=== PATIENT | female | born 1940 | race Caucasian/White ===

== ENCOUNTER 2016-08-11 14:42 | Inpatient (IN) | payer MEDICARE, OTHER ==
[2016-08-11] MEDS: Potassium Chloride 25 MEQ Powder Packet PO SCH ×2 (16:42→20:24)
[2016-08-11] MEDS: Sodium Chloride 0.9% with KCl 1,000 ML IV SCH (16:45)
[2016-08-11] MEDS ORDERED: Aspirin 81 MG Tab.Chew PO ONE (17:12)
[2016-08-11] MEDS ORDERED: Aspirin 81 MG Tab.EC PO SCH (17:15)
[2016-08-11] MEDS ORDERED: Clopidogrel 75 MG Tab PO ONE (17:15)
[2016-08-11] MEDS: Pantoprazole 40 MG Vial IVPUSH SCH (18:00)
[2016-08-11] MEDS: Metoprolol Succinate 25 MG Tab.ER PO SCH (18:00)
[2016-08-11] MEDS: Fluticasone/Salmeterol 250-50 MCG Inhalation Powder 14/Diskus INH SCH (20:24)
[2016-08-11] MEDS: Magnesium Oxide 500 MG Tab PO SCH (20:24)
[2016-08-11] MEDS: atorvaSTATin 10 MG Tab PO SCH (20:24)
[2016-08-11] MEDS ORDERED: Omeprazole 20 MG Cap.CR PO SCH (21:00)
[2016-08-12] MEDS: Sodium Chloride 0.9% with KCl 1,000 ML IV SCH (08:15)
[2016-08-12] MEDS ORDERED: Potassium Chloride 20 MEQ in Premix Bag 1 BAG IV ONE ×2 (08:47→11:00)
[2016-08-12] MEDS ORDERED: Metoprolol Tartrate 50 MG Tab PO SCH (09:00)
[2016-08-12] MEDS: Fluticasone/Salmeterol 250-50 MCG Inhalation Powder 14/Diskus INH SCH ×2 (09:25→20:43)
--- NOTE | 2016-08-12 09:28 | PCM.PN ---
- General Info Date of Service: 08/12/16 Admission Dx/Problem (Free Text): Chief complaint: Weakness/low potassium History of present illness Patient is a 75-year-old white female with a significant history-COPD, hypertension, hypokalemia, hypomagnesemia-patient presented to the clinic apparently to see the Oncologist-however upon routine lab draw she was noticed to have a potassium level of 2.2 and appeared quite weak and with self-care neglect. They have been compliant with her medications including her regular potassium. Alcohol-some wine at night for supper. Very disheveled in the office however denied any shortness of breath or chest pain. Patient presented for oncology due to progressive neutropenia Patient admitted for further evaluation and treatment-especially hypokalemia Past medical history: COPD Depression Hypertension Hyperlipidemia GERD Alcohol dependency Tobacco abuse disorder Hypomagnesemia Osteoporosis Atrial Flutter with RVR GI bleed Chronic diarrhea Present Working diagnosis: Hypokalemia-profound Weakness Self care deficit for bathing and hygiene COPD History of atrial fibrillation Essential hypertension Hyperlipidemia Age related osteoporosis Rule out myocardial infarction Patient reports today: Feels a little bit better today Denies any chest pain or shortness breath at present-O2 on Does have home oxygen at home for reports it is not for her COPD is for some other reason she can't remember Significant memory loss appreciated-patient thinks it was 1998 the [facility] Nurses report today: Tough, sad situation patient came in very unkempt/disheveled Nurses report that she usually goes to the penitentiary after her acute care admission and then gets in fairly good condition and then goes back home again and does not or is not able to take care of herself adequately and cleanse herself adequately Significant memory loss History of significant tobacco abuse disorder-remains active History of significant alcohol abuse disorder-remains active Diffuse skin rash on her bottom with ulcerations Very limited social situation Asymptomatic with elevated heart rate-heart rate increases to 160s-170s at times Functional Status: Reports: pain controlled, tolerating diet, ambulating (With assistance ) - Review of Systems General: Reports: Weakness, Fatigue, Malaise. Denies: Fever, Chills HEENT: Reports: no symptoms Pulmonary: Reports: no symptoms. Denies: shortness of breath (No shortness breath at present but has her oxygen on), cough, wheezing Cardiovascular: Reports: No Symptoms. Denies: Chest Pain, Palpitations, Edema, Lightheadedness Gastrointestinal: Reports: No symptoms Genitourinary: Reports: no symptoms Musculoskeletal: Reports: no symptoms Skin: Reports: no symptoms Neurological: Reports: No Symptoms, Weakness, Other (Obvious recent memory loss problems) Psychiatric: Reports: no symptoms, other (History of depression anxiety- pleasant at present) - Patient Data Vitals - most recent: Last Vital Signs Temp 96.8 F 08/12/16 06:26 Pulse 85 08/12/16 06:26 Resp 20 08/12/16 06:26 BP 97/54 L 08/12/16 06:26 Pulse Ox 96 08/12/16 06:26 Weight - most recent: 105 lb 4.8 oz I&O - last 24 hours: Intake & Output 08/11/16 08/12/16 08/12/16 22:59 06:59 14:59 Intake Total 396 847 Balance 396 847 Lab Results last 24 hrs: Laboratory Results - last 24 hr 08/11/16 08/11/16 08/12/16 Range/Units 15:25 21:25 07:30 Sodium 143 (136-145) mmol/L Potassium 1.8 L* (3.3-5.3) mmol/L Chloride 99 (98-115) mmol/L Carbon Dioxide 33.5 H (21.0-32.0) mmol/L BUN 26 H (6-25) mg/dL Creatinine 1.18 H (0.51-1.17) mg/dL Est Cr Clr Drug Dosing 30.58 mL/min Estimated GFR (MDRD) 45 mL/min Glucose 144 H (70-110) mg/dL Calcium 8.0 L (8.7-10.3) mg/dL Magnesium 1.2 L (1.8-2.4) mg/dL Total Bilirubin 1.1 H (0.2-1.0) mg/dL AST 183 H (15-37) U/L ALT 112 H (12-78) U/L Alkaline Phosphatase 72 (46-116) IU/L Troponin I 0.12 H* 0.11 H* 0.08 H* (0.00-0.070) ng/mL Total Protein 5.0 L (6.4-8.2) g/dL Albumin 2.00 L (3.00-4.80) g/dL Med Orders - Current: Current Medications Aspirin (Halfprin) 81 mg PO WITHBREAKFAST [facility] Atorvastatin Calcium (Lipitor) 20 mg PO BEDTIME [facility] Last Admin: 08/11/16 20:24 Dose: 20 mg Citalopram Hydrobromide (Celexa) 20 mg PO DAILY [facility] Clopidogrel Bisulfate (Plavix) 75 mg PO DAILY [facility] Folic Acid (Folic Acid) 1 mg PO DAILY [facility] Potassium Chloride/Sodium Chloride (Normal Saline With 40 Meq Kcl) 1,000 mls @ 65 mls/hr IV ASDIRECTED [facility] Last Admin: 08/12/16 08:15 Dose: 65 mls/hr Potassium Chloride 20 meq/ (Premix) 100 mls @ 50 mls/hr IV ONETIME ONE Stop: 08/12/16 10:46 Potassium Chloride 20 meq/ (Premix) 100 mls @ 50 mls/hr IV ONETIME ONE Stop: 08/12/16 12:59 Magnesium Oxide (Magnesium Oxide) 500 mg PO TID [facility] Last Admin: 08/11/16 20:24 Dose: 500 mg Metoprolol Succinate (Toprol Xl) 25 mg PO DAILY [facility] Last Admin: 08/11/16 18:00 Dose: 25 mg Pantoprazole Sodium (Protonix Iv) 40 mg IVPUSH DAILY [facility] Last Admin: 08/11/16 18:00 Dose: 40 mg Potassium Chloride (Klor-Con) 25 meq PO TID [facility] Stop: 08/12/16 16:00 Last Admin: 08/11/16 20:24 Dose: 25 meq Fluticasone/Salmeterol (Advair Diskus 250-50) 1 puff INH BIDRT [facility] Last Admin: 08/11/16 20:24 Dose: 1 puff Thiamine HCl (Vitamin B-1) 100 mg PO DAILY [facility] Discontinued Medications Aspirin (Halfprin) 81 mg PO WITHBREAKFAST [facility] Aspirin (Aspirin) 162 mg PO ONETIME ONE Stop: 05/19/17 17:13 Last Admin: 08/11/16 17:59 Dose: 162 mg Clopidogrel Bisulfate (Plavix) 300 mg PO ONETIME ONE Stop: 08/11/16 17:16 Last Admin: 08/11/16 17:59 Dose: 300 mg Metoprolol Tartrate (Lopressor) 25 mg PO DAILY [facility] Omeprazole (Omeprazole) 20 mg PO BID [facility] - Exam Quality Assessment: supplemental oxygen General: alert, cooperative, no acute distress, other (Patient has significant acute memory loss-unsure of exact dates and times, small very elderly frail appearing female-much dry cleaner helper now but reviewed pictures from when patient first presented-dried stool in her groin) HEENT: Pupils equal, Pupils reactive, EOMI, Mucous membr. moist/pink. No: Scleral icterus Neck: supple, trachea midline, no JVD, no thyromegaly. No: lymphadenopathy Lungs: Normal respiratory effort (With oxygen on), Decreased breath sounds, Crackles, Wheezing (Slight at times) Cardiovascular: Irregular Rhythm, Tachycardia (At times-asymptomatic), Murmurs Abdomen: bowel sounds present, soft, no tenderness, no distension. No: rigidity , rebound, guarding, tenderness, distension Extremities: no edema, no tenderness/swelling Skin: warm, dry, intact, rash (Diffuse groin and buttock area with ulcerations) Wound/Incisions: erythema, decubitis (Buttock area), other (Severe tinea pedis and onychomycosis bilateral feet) Neurological: other (Significant generalized weakness but moving all her extremities) Psy/Mental Status: alert, normal affect, normal mood - Problem List Review Problem List Initiated/Reviewed/Updated: Yes - My Orders Last 24 Hours: My Active Orders 08/12/16 08:47 Potassium Chloride [KCL 20 MEQ in Water 100 ML] 20 meq Premix Bag 1 bag IV ONETIME 08/12/16 11:00 Potassium Chloride [KCL 20 MEQ in Water 100 ML] 20 meq Premix Bag 1 bag IV ONETIME ECG on showed sinus rhythm with premature supraventricular complexes with occasional premature ventricular complexes, ST and T wave abnormality consider inferior ischemia and anterior lateral ischemia, Prolonged QT, abnormal ECG - Assessment Assessment:: [id number] Weakness-multifactorial Hypomagnesemia Cardiac arrhythmia/tachycardia-suspect secondary to previous cardiac arrhythmia atrial fib flutter history with RVR Elevated troponin thought secondary to myocardial ischemia/myocardial strain/ myocardial infarction-gradually improving Hypoproteinemia/hypoalbuminemia Elevated LFTs-question etiology rule out occult pathology-concern even for remote occult tumor Self care deficit for bathing and hygiene/limited social situation Dyspnea/hypoxia-controlled with oxygen-suspect secondary to COPD rule out other occult pathology-acute on chronic COPD High-risk medication-Plavix History of atrial fibrillation/atrial flutter Essential hypertension-good control Hyperlipidemia GERD Depression/anxiety Age related osteoporosis Rule out myocardial infarction - Plan Plan:: Reviewed present treatment regimen-continue same regimen except changes as listed below IV potassium bolus x2-20 mEq per bolus Continue monitoring patient very closely, vital signs, telemetry Full cultures-blood, sputum, urine, wounds Cover with broad-spectrum IV antibiotics-IV Zosyn Chest x-ray today CAT scan of the abdomen and pelvis in a.m. considering elevated LFTs-may need to do chest CAT scan also-await chest x-ray first BMP at 7 PM In a.m.-CBC, CMP, troponin Nystatin cream to her diffuse bottom 3 times a day Diflucan 100 mg one by mouth everyday Talked with patient and she agrees with this evaluation treatment plan
[2016-08-12] MEDS: Pantoprazole 40 MG Vial IVPUSH SCH (09:30)
[2016-08-12] MEDS: Potassium Chloride 25 MEQ Powder Packet PO SCH ×2 (09:30→17:09)
[2016-08-12] MEDS: Folic Acid 1 MG Tab PO SCH (09:31)
[2016-08-12] MEDS: Aspirin 81 MG Tab.EC PO SCH (09:31)
[2016-08-12] MEDS: Magnesium Oxide 500 MG Tab PO SCH ×3 (09:31→20:43)
[2016-08-12] MEDS: Clopidogrel 75 MG Tab PO SCH (09:32)
[2016-08-12] MEDS: Citalopram 20 MG Tab PO SCH (09:32)
[2016-08-12] MEDS: Thiamine 100 MG Tab PO SCH (09:33)
[2016-08-12] MEDS: Metoprolol Succinate 25 MG Tab.ER PO SCH ×2 (09:44→11:01)
[2016-08-12] MEDS: Nystatin Crm 15 GM Tube TOP SCH ×3 (11:11→20:43)
[2016-08-12] MEDS: Fluconazole 100 MG Tab PO SCH (13:25)
[2016-08-12] MEDS: Piperacillin/Tazobactam/Dext 3.375 GM in Premix Bag 1 BAG IV SCH ×3 (13:28→19:29)
[2016-08-12] MEDS ORDERED: Potassium Chloride 20 MEQ Packet PO SCH (17:15)
[2016-08-12] MEDS: Potassium Chloride 20 MEQ Packet PO SCH (17:26)
[2016-08-12] MEDS: atorvaSTATin 10 MG Tab PO SCH (20:43)
[2016-08-13] MEDS: Piperacillin/Tazobactam/Dext 3.375 GM in Premix Bag 1 BAG IV SCH ×4 (00:21→18:24)
[2016-08-13] MEDS: Sodium Chloride 0.9% with KCl 1,000 ML IV SCH ×3 (03:53→23:31)
[2016-08-13] MEDS: Fluticasone/Salmeterol 250-50 MCG Inhalation Powder 14/Diskus INH SCH ×2 (09:15→20:09)
[2016-08-13] MEDS: Nystatin Crm 15 GM Tube TOP SCH ×3 (09:16→20:09)
[2016-08-13] MEDS: Fluconazole 100 MG Tab PO SCH (09:16)
[2016-08-13] MEDS: Potassium Chloride 20 MEQ Packet PO SCH ×3 (09:16→18:24)
[2016-08-13] MEDS: Magnesium Oxide 500 MG Tab PO SCH ×3 (09:16→20:09)
[2016-08-13] MEDS: Citalopram 20 MG Tab PO SCH (09:16)
[2016-08-13] MEDS: Folic Acid 1 MG Tab PO SCH (09:16)
[2016-08-13] MEDS: Aspirin 81 MG Tab.EC PO SCH (09:16)
--- NOTE | 2016-08-13 09:16 | PCM.PN ---
- General Info Date of Service: 08/13/16 Admission Dx/Problem (Free Text): Chief complaint: Weakness/low potassium History of present illness Patient is a 75-year-old white female with a significant history-COPD, hypertension, hypokalemia, hypomagnesemia-patient presented to the clinic apparently to see the Oncologist-however upon routine lab draw she was noticed to have a potassium level of 2.2 and appeared quite weak and with self-care neglect. They have been compliant with her medications including her regular potassium. Alcohol-some wine at night for supper. Very disheveled in the office however denied any shortness of breath or chest pain. Patient presented for oncology due to progressive neutropenia Patient admitted for further evaluation and treatment-especially hypokalemia Past medical history: COPD Depression Hypertension Hyperlipidemia GERD Alcohol dependency Tobacco abuse disorder Hypomagnesemia Osteoporosis Atrial Flutter with RVR GI bleed Chronic diarrhea Present Working diagnosis: Hypokalemia-profound Weakness Self care deficit for bathing and hygiene COPD History of atrial fibrillation Essential hypertension Hyperlipidemia Age related osteoporosis Rule out myocardial infarction Patient treated aggressively with IV fluids, potassium supplements-oral and IV, covered with broad-spectrum antibiotics after obtained full cultures-IV Zosyn considering her 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 Patient responding very nicely to the above therapies Patient reports today: Feels a little bit better Denies any chest pain, shortness breath at her baseline Has chronic oxygen at home but sounds like she wears a more on an as-needed basis Patient reports she is eating better since admission-but overall not optimal appetite but improving Minimal pain-just feels sore all over Nurses report today: Showing slow good improvement-stool problems Chronic diarrhea-constantly incontinent of stool Very weak-requires increased assistance In general looks better today Weight up 5.5 pounds Functional Status: Reports: pain controlled, tolerating diet, ambulating (With walker and significant assistance), urinating - Review of Systems General: Reports: Weakness, Fatigue, Malaise, Appetite (Decreased). Denies: Fever, Chills HEENT: Reports: no symptoms Pulmonary: Reports: shortness of breath (Baseline-COPD). Denies: wheezing Cardiovascular: Reports: Dyspnea on Exertion. Denies: Chest Pain, Palpitations , Edema, Lightheadedness Gastrointestinal: Reports: Decreased appetite, Diarrhea (Chronic-incontinent). Denies: Abdominal pain, Constipation, Hematochezia, Melena, Nausea, Vomiting Genitourinary: Reports: no symptoms Musculoskeletal: Reports: no symptoms Neurological: Reports: No Symptoms Psychiatric: Reports: no symptoms, other (Nurses report memory loss somewhat better today) - Patient Data Vitals - most recent: Last Vital Signs Temp 97.9 F 08/13/16 07:00 Pulse 86 08/13/16 07:00 Resp 16 08/13/16 07:00 BP 103/57 L 08/13/16 07:00 Pulse Ox 98 08/13/16 07:00 Weight - most recent: 110 lb 12.8 oz I&O - last 24 hours: Intake & Output 08/12/16 08/13/16 08/13/16 22:59 06:59 14:59 Intake Total 970 704 Output Total 20 Balance 950 704 Lab Results last 24 hrs: Laboratory Results - last 24 hr 08/12/16 08/12/16 08/12/16 Range/Units 07:30 16:00 19:12 WBC 5.5 (5.0-10.0) 10^3/uL RBC 3.52 L (3.80-5.50) 10^6/uL Hgb 12.0 (12.0-16.0) g/dL Hct 35.8 L (37.0-47.0) % MCV 101.8 H (82.0-92.0) fL MCH 34.1 H (27.0-31.0) pg MCHC 33.5 (32.0-36.0) g/dL RDW 12.3 (11.5-14.5) % Plt Count 142 L (150-300) 10^3/uL MPV 8.9 (7.4-10.4) fL Neut % (Auto) 69.5 (50.0-70.0) % Lymph % (Auto) 18.7 L (20.0-40.0) % [place] % (Auto) 9.7 H (2.0-8.0) % Eos % (Auto) 1.8 (1.0-3.0) % Baso % (Auto) 0.3 (0.0-1.0) % Neut # (Auto) 3.9 (2.5-7.0) 10^3/uL Lymph # (Auto) 1.0 (1.0-4.0) 10^3/uL [place] # (Auto) 0.5 (0.1-0.8) 10^3/uL Eos # (Auto) 0.1 (0.1-0.3) 10^3/uL Baso # (Auto) 0.0 (0.0-0.1) 10^3/uL Sodium 139 (136-145) mmol/L Potassium 3.3 (3.3-5.3) mmol/L Chloride 98 (98-115) mmol/L Carbon Dioxide 28.1 (21.0-32.0) mmol/L BUN 23 (6-25) mg/dL Creatinine 1.09 (0.51-1.17) mg/dL Est Cr Clr Drug Dosing 33.11 mL/min Estimated GFR (MDRD) 49 mL/min Glucose 135 H (70-110) mg/dL Calcium 7.7 L (8.7-10.3) mg/dL Specimen Type [place] Urine Color Yellow (YELLOW) Urine Appearance Clear (CLEAR) Urine pH 6.0 (5.0-9.0) Ur Specific [place] 1.010 (1.005-1.030) Urine Protein Trace H (NEGATIVE) mg/dL Urine Glucose (UA) Negative (NEGATIVE) mg/dL Urine Ketones Trace H (NEGATIVE) mg/dL Urine Occult Blood Trace-intact H (NEGATIVE) Urine Nitrite Negative (NEGATIVE) Urine Bilirubin Small H (NEGATIVE) Urine Urobilinogen 0.2 (0.2-1.0) E.U./dL Ur Leukocyte Esterase Negative (NEGATIVE) Urine RBC 0-5 /HPF Urine WBC 0-5 /HPF Ur Epithelial Cells Rare /LPF Urine Bacteria Not seen (NONE TO FEW) /HPF 08/13/16 Range/Units 07:50 WBC 4.8 L (5.0-10.0) 10^3/uL RBC 3.28 L (3.80-5.50) 10^6/uL Hgb 11.2 L (12.0-16.0) g/dL Hct 32.9 L (37.0-47.0) % MCV 100.5 H (82.0-92.0) fL MCH 34.3 H (27.0-31.0) pg MCHC 34.1 (32.0-36.0) g/dL RDW 12.4 (11.5-14.5) % Plt Count 119 L (150-300) 10^3/uL MPV 8.0 (7.4-10.4) fL Neut % (Auto) 68.7 (50.0-70.0) % Lymph % (Auto) 17.8 L (20.0-40.0) % [place] % (Auto) 8.7 H (2.0-8.0) % Eos % (Auto) 4.1 H (1.0-3.0) % Baso % (Auto) 0.7 (0.0-1.0) % Neut # (Auto) 3.3 (2.5-7.0) 10^3/uL Lymph # (Auto) 0.9 L (1.0-4.0) 10^3/uL [place] # (Auto) 0.4 (0.1-0.8) 10^3/uL Eos # (Auto) 0.2 (0.1-0.3) 10^3/uL Baso # (Auto) 0.0 (0.0-0.1) 10^3/uL Sodium (136-145) mmol/L Potassium (3.3-5.3) mmol/L Chloride (98-115) mmol/L Carbon Dioxide (21.0-32.0) mmol/L BUN (6-25) mg/dL Creatinine (0.51-1.17) mg/dL Est Cr Clr Drug Dosing mL/min Estimated GFR (MDRD) mL/min Glucose (70-110) mg/dL Calcium (8.7-10.3) mg/dL Specimen Type Urine Color (YELLOW) Urine Appearance (CLEAR) Urine pH (5.0-9.0) Ur Specific [place] (1.005-1.030) Urine Protein (NEGATIVE) mg/dL Urine Glucose (UA) (NEGATIVE) mg/dL Urine Ketones (NEGATIVE) mg/dL Urine Occult Blood (NEGATIVE) Urine Nitrite (NEGATIVE) Urine Bilirubin (NEGATIVE) Urine Urobilinogen (0.2-1.0) E.U./dL Ur Leukocyte Esterase (NEGATIVE) Urine RBC /HPF Urine WBC /HPF Ur Epithelial Cells /LPF Urine Bacteria (NONE TO FEW) /HPF Med Orders - Current: Current Medications Aspirin (Halfprin) 81 mg PO WITHBREAKFAST [facility] Last Admin: 08/12/16 09:31 Dose: 81 mg Atorvastatin Calcium (Lipitor) 20 mg PO BEDTIME [facility] Last Admin: 08/12/16 20:43 Dose: 20 mg Citalopram Hydrobromide (Celexa) 20 mg PO DAILY [facility] Last Admin: 08/12/16 09:32 Dose: 20 mg Clopidogrel Bisulfate (Plavix) 75 mg PO DAILY [facility] Last Admin: 08/12/16 09:32 Dose: 75 mg Fluconazole (Diflucan) 100 mg PO DAILY [facility] Last Admin: 08/12/16 13:25 Dose: 100 mg Folic Acid (Folic Acid) 1 mg PO DAILY [facility] Last Admin: 08/12/16 09:31 Dose: 1 mg Potassium Chloride/Sodium Chloride (Normal Saline With 40 Meq Kcl) 1,000 mls @ 65 mls/hr IV ASDIRECTED [facility] Last Admin: 08/13/16 03:53 Dose: 65 mls/hr Piperacillin/Tazobactam/ (Dextrose 3.375 gm/ Premix) 50 mls @ 100 mls/hr IV Q6H [facility] Last Admin: 08/13/16 06:23 Dose: 100 mls/hr Magnesium Oxide (Magnesium Oxide) 500 mg PO TID [facility] Last Admin: 08/12/16 20:43 Dose: 500 mg Metoprolol Succinate (Toprol Xl) 25 mg PO DAILY [facility] Last Admin: 08/12/16 11:01 Dose: 25 mg Nystatin (Nystatin Crm) 0 gm TOP TID [facility] Last Admin: 08/12/16 20:43 Dose: 1 applic Pantoprazole Sodium (Protonix Iv) 40 mg IVPUSH DAILY [facility] Last Admin: 08/12/16 09:30 Dose: 40 mg Potassium Chloride (Klor-Con) 20 meq PO TIDMEALS [facility] Last Admin: 05/20/17 17:26 Dose: 20 meq Fluticasone/Salmeterol (Advair Diskus 250-50) 1 puff INH BIDRT [facility] Last Admin: 08/12/16 20:43 Dose: 1 puff Thiamine HCl (Vitamin B-1) 100 mg PO DAILY [facility] Last Admin: 08/12/16 09:33 Dose: 100 mg Discontinued Medications Aspirin (Halfprin) 81 mg PO WITHBREAKFAST [facility] Aspirin (Aspirin) 162 mg PO ONETIME ONE Stop: 08/11/16 17:13 Last Admin: 08/11/16 17:59 Dose: 162 mg Clopidogrel Bisulfate (Plavix) 300 mg PO ONETIME ONE Stop: 08/11/16 17:16 Last Admin: 08/11/16 17:59 Dose: 300 mg Potassium Chloride 20 meq/ (Premix) 100 mls @ 50 mls/hr IV ONETIME ONE Stop: 08/12/16 10:46 Last Admin: 08/12/16 09:26 Dose: 50 mls/hr Potassium Chloride 20 meq/ (Premix) 100 mls @ 50 mls/hr IV ONETIME ONE Stop: 08/12/16 12:59 Last Admin: 08/12/16 12:19 Dose: 50 mls/hr Piperacillin/Tazobactam/ (Dextrose 3.375 gm/ Premix) 50 mls @ 100 mls/hr IV Q6H [facility] Last Admin: 08/12/16 19:29 Dose: Not Given Metoprolol Tartrate (Lopressor) 25 mg PO DAILY [facility] Omeprazole (Omeprazole) 20 mg PO BID [facility] Potassium Chloride (Klor-Con) 25 meq PO TID [facility] Stop: 08/12/16 16:00 Last Admin: 08/12/16 17:09 Dose: Not Given Potassium Chloride (Klor-Con) 20 meq PO ASDIRECTED [facility] - Exam General: alert, cooperative, no acute distress, other (Very weak yet-needs a lot of assistance just to get to the bathroom and back-nurse and walker, appears more hydrated today, general strength is a little better, less toxic/ septic appearing) HEENT: Pupils equal, Pupils reactive, EOMI, Mucous membr. moist/pink. No: Scleral icterus Neck: supple, trachea midline, no JVD, no thyromegaly. No: lymphadenopathy Lungs: Normal respiratory effort, Decreased breath sounds, Rales, Wheezing ( Occasional) Cardiovascular: Regular Rate, Regular Rhythm, Murmurs (1-2/6 systolic) Abdomen: bowel sounds present, soft, no tenderness, no distension. No: rigidity , rebound, guarding, tenderness, distension (Female) Exam: Other (Perineal and buttock area appears 50% better-less redness, shallow ulcers by the buttock areas appeared to already be healing- impressed how much better it looks overall) Extremities: no edema, no calf tenderness Skin: warm, dry, intact, other (Perineal and buttock rash as above, still has some flat erythematous patchy rash mid to upper back) Wound/Incisions: healing well Neurological: no new focal deficit Psy/Mental Status: alert, normal affect, normal mood, other (Memory loss still present but doesn't seem quite as marked) - Problem List Review Problem List Initiated/Reviewed/Updated: Yes - My Orders Last 24 Hours: My Active Orders 08/12/16 10:15 CULTURE SPUTUM + SMEAR [RM] Routine CULTURE WOUND + SMEAR [RM] Routine CULTURE WOUND [RM] Routine Blood Culture x2 Reflex Set [OM.PC] Stat 08/12/16 10:30 Fluconazole [Diflucan] 100 mg PO DAILY 08/12/16 10:45 CULTURE WOUND [RM] Routine 08/12/16 11:00 Chest 2V [CR] Routine 08/12/16 11:45 CULTURE BLOOD [BC] Stat 08/12/16 13:15 CULTURE BLOOD [BC] Stat 08/12/16 14:00 Nystatin [Nystatin Crm] 0 gm TOP TID 08/12/16 16:00 CULTURE URINE [RM] Routine 08/12/16 18:00 Potassium Chloride [Klor-Con] 20 meq PO TIDMEALS 08/12/16 19:00 Piperacillin/Tazobactam/Dext [Zosyn in Dextrose Iso-Osmotic 3.375 GM] 3.375 gm Premix Bag 1 bag IV Q6H 08/13/16 07:50 COMPREHENSIVE METABOLIC PN,CMP [CHEM] Routine MAGNESIUM [CHEM] Routine TROPONIN I [CHEM] Routine - Assessment Assessment:: Fsbmrsnbfyk-nxgcgnxv-fwjsgk improvement Weakness-multifactorial Hypomagnesemia-slightly worse-not ideal-question if patient is absorbing the magnesium Cardiac arrhythmia/tachycardia-essentially resolved after potassium supplements started Elevated troponin thought secondary to myocardial ischemia/myocardial strain/ myocardial infarction-persistent Hypoproteinemia/hypoalbuminemia Elevated LFTs-question etiology rule out occult pathology-concern even for remote occult tumor Self care deficit for bathing and hygiene/limited social situation Dyspnea/hypoxia-controlled with oxygen-suspect secondary to COPD rule out other occult pathology-baseline COPD High-risk medication-Plavix History of atrial fibrillation/atrial flutter-controlled at present Essential hypertension-good control Hyperlipidemia GERD Depression/anxiety Age related osteoporosis - Plan Plan:: Reviewed present treatment regimen-continue same regimen except changes as listed below Continue monitoring patient very closely, vital signs, telemetry Await culture results Continue to cover with broad-spectrum IV antibiotics-IV Zosyn-perineal and buttock rash really seems to be responding to this Chest x-ray reviewed-COPD but no other acute changes Consider CAT scan of the abdomen and pelvis -- considering elevated LFTs In a.m.-CBC, CMP, troponin Continue Nystatin cream to her bottom 3 times a day Continue Diflucan 100 mg one by mouth everyday Talked with patient and she agrees with this evaluation treatment plan Increase IV rate-normal saline with 40 mEq KCl per liter to 125 cc per hour C. difficile-repeat
[2016-08-13] MEDS: Metoprolol Succinate 25 MG Tab.ER PO SCH (09:17)
[2016-08-13] MEDS: Thiamine 100 MG Tab PO SCH (09:17)
[2016-08-13] MEDS: Clopidogrel 75 MG Tab PO SCH (09:17)
[2016-08-13] MEDS: Pantoprazole 40 MG Vial IVPUSH SCH (09:24)
[2016-08-13] MEDS: atorvaSTATin 10 MG Tab PO SCH (20:09)
[2016-08-14] MEDS: Piperacillin/Tazobactam/Dext 3.375 GM in Premix Bag 1 BAG IV SCH ×2 (00:18→06:11)
[2016-08-14 07:58] LABS: CHLORIDE,CL 108 mmol/L (98-115); SODIUM,NA 144 mmol/L (136-145)
[2016-08-14] MEDS: Fluticasone/Salmeterol 250-50 MCG Inhalation Powder 14/Diskus INH SCH ×2 (09:06→20:20)
[2016-08-14] MEDS: Sodium Chloride 0.9% with KCl 1,000 ML IV SCH (09:22)
[2016-08-14] MEDS: Clopidogrel 75 MG Tab PO SCH (09:32)
[2016-08-14] MEDS: Magnesium Oxide 500 MG Tab PO SCH ×4 (09:32→22:23)
[2016-08-14] MEDS: Thiamine 100 MG Tab PO SCH (09:32)
[2016-08-14] MEDS: Potassium Chloride 20 MEQ Packet PO SCH ×2 (09:33→17:44)
[2016-08-14] MEDS: Citalopram 20 MG Tab PO SCH (09:33)
[2016-08-14] MEDS: Metoprolol Succinate 25 MG Tab.ER PO SCH (09:33)
[2016-08-14] MEDS: Aspirin 81 MG Tab.EC PO SCH (09:34)
[2016-08-14] MEDS: Pantoprazole 40 MG Vial IVPUSH SCH (09:34)
[2016-08-14] MEDS: Folic Acid 1 MG Tab PO SCH (09:34)
[2016-08-14] MEDS: Fluconazole 100 MG Tab PO SCH (09:34)
[2016-08-14] MEDS: Nystatin Crm 15 GM Tube TOP SCH ×2 (09:35→16:29)
[2016-08-14] MEDS ORDERED: Sodium Chloride 0.9% with KCl 1,000 ML IV SCH (11:00)
--- NOTE | 2016-08-14 11:06 | PCM.PN ---
- General Info Date of Service: 08/14/16 Functional Status: Reports: pain controlled, tolerating diet, urinating - Review of Systems General: Reports: Weakness HEENT: Reports: no symptoms Pulmonary: Reports: no symptoms Cardiovascular: Denies: Dyspnea on Exertion, Edema Gastrointestinal: Reports: Diarrhea. Denies: Decreased appetite, Difficulty swallowing, Nausea, Vomiting Genitourinary: Reports: no symptoms Musculoskeletal: Reports: no symptoms Skin: Reports: rash (excoriated perineum,) Neurological: Reports: Difficulty Walking, Weakness Psychiatric: Reports: mood lability - Patient Data Vitals - most recent: Last Vital Signs Temp 97.2 F 08/14/16 06:52 Pulse 88 08/14/16 09:33 Resp 20 08/14/16 06:52 BP 110/62 08/14/16 09:33 Pulse Ox 91 L 08/14/16 09:45 Weight - most recent: 117 lb 3.2 oz I&O - last 24 hours: Intake & Output 08/13/16 08/14/16 08/14/16 22:59 06:59 14:59 Intake Total 1156 1010 Output Total 1 Balance 1155 1010 Lab Results last 24 hrs: Laboratory Results - last 24 hr 08/14/16 08/14/16 08/14/16 Range/Units 07:20 07:20 07:20 WBC 5.1 (5.0-10.0) 10^3/uL RBC 3.33 L (3.80-5.50) 10^6/uL Hgb 11.2 L (12.0-16.0) g/dL Hct 33.6 L (37.0-47.0) % MCV 100.8 H (82.0-92.0) fL MCH 33.7 H (27.0-31.0) pg MCHC 33.4 (32.0-36.0) g/dL RDW 12.7 (11.5-14.5) % Plt Count 126 L (150-300) 10^3/uL MPV 8.2 (7.4-10.4) fL Neut % (Auto) 72.5 H (50.0-70.0) % Lymph % (Auto) 13.7 L (20.0-40.0) % Leslie % (Auto) 6.6 (2.0-8.0) % Eos % (Auto) 6.0 H (1.0-3.0) % Baso % (Auto) 1.2 H (0.0-1.0) % Neut # (Auto) 3.7 (2.5-7.0) 10^3/uL Lymph # (Auto) 0.7 L (1.0-4.0) 10^3/uL Leslie # (Auto) 0.3 (0.1-0.8) 10^3/uL Eos # (Auto) 0.3 (0.1-0.3) 10^3/uL Baso # (Auto) 0.1 (0.0-0.1) 10^3/uL Sodium 144 (136-145) mmol/L Potassium 4.3 (3.3-5.3) mmol/L Chloride 108 (98-115) mmol/L Carbon Dioxide 26.1 (21.0-32.0) mmol/L BUN 11 (6-25) mg/dL Creatinine 0.85 (0.51-1.17) mg/dL Est Cr Clr Drug Dosing 46.56 mL/min Estimated GFR (MDRD) > 60 mL/min Glucose 66 L (70-110) mg/dL Calcium 7.3 L (8.7-10.3) mg/dL Phosphorus 1.5 L (2.6-4.7) mg/dL Total Bilirubin 1.0 (0.2-1.0) mg/dL AST 145 H (15-37) U/L ALT 87 H (12-78) U/L Alkaline Phosphatase 64 (46-116) IU/L Troponin I < 0.04 (0.00-0.070) ng/mL Total Protein 4.7 L (6.4-8.2) g/dL Albumin 1.75 L (3.00-4.80) g/dL Young Results last 24 hrs: Microbiology 08/12/16 10:15 Gram Stain - Final Buttock, Left Wound Culture - Final Corynebacterium Species Escherichia Coli 08/12/16 10:15 Wound Culture - Final Labia - Unspecified Corynebacterium Species Escherichia Coli 08/12/16 16:00 Urine Culture - Final Urine, Catheterized NO GROWTH AFTER 2 DAYS 08/13/16 13:40 Clostridium difficile Toxin A&B (M) - Final Stool / Feces - Stool, Formed NEGATIVE CDIFF TOXIN 08/12/16 13:15 Aerobic Blood Culture - Preliminary Blood - Venous NO GROWTH AFTER 1 DAY Anaerobic Blood Culture - Preliminary NO GROWTH AFTER 1 DAY 08/12/16 11:45 Aerobic Blood Culture - Preliminary Blood - Venous - Lab Draw NO GROWTH AFTER 1 DAY Anaerobic Blood Culture - Preliminary NO GROWTH AFTER 1 DAY Med Orders - Current: Current Medications Aspirin (Halfprin) 81 mg PO WITHBREAKFAST [facility] Last Admin: 08/14/16 09:34 Dose: 81 mg Atorvastatin Calcium (Lipitor) 20 mg PO BEDTIME [facility] Last Admin: 08/13/16 20:09 Dose: 20 mg Citalopram Hydrobromide (Celexa) 20 mg PO DAILY [facility] Last Admin: 08/14/16 09:33 Dose: 20 mg Clopidogrel Bisulfate (Plavix) 75 mg PO DAILY [facility] Last Admin: 08/14/16 09:32 Dose: 75 mg Fluconazole (Diflucan) 100 mg PO DAILY [facility] Last Admin: 08/14/16 09:34 Dose: 100 mg Folic Acid (Folic Acid) 1 mg PO DAILY [facility] Last Admin: 08/14/16 09:34 Dose: 1 mg Piperacillin/Tazobactam/ (Dextrose 3.375 gm/ Premix) 50 mls @ 100 mls/hr IV Q6H [facility] Last Admin: 08/14/16 06:11 Dose: 100 mls/hr Potassium Chloride/Sodium Chloride (Normal Saline With 40 Meq Kcl) 1,000 mls @ 125 mls/hr IV ASDIRECTED [facility] Last Admin: 08/14/16 09:22 Dose: 125 mls/hr Magnesium Oxide (Magnesium Oxide) 500 mg PO TID [facility] Last Admin: 08/14/16 09:32 Dose: 500 mg Metoprolol Succinate (Toprol Xl) 25 mg PO DAILY [facility] Last Admin: 08/14/16 09:33 Dose: 25 mg Nystatin (Nystatin Crm) 0 gm TOP TID [facility] Last Admin: 08/14/16 09:35 Dose: 1 applic Pantoprazole Sodium (Protonix Iv) 40 mg IVPUSH DAILY [facility] Last Admin: 08/14/16 09:34 Dose: 40 mg Potassium Chloride (Klor-Con) 20 meq PO TIDMEALS [facility] Last Admin: 08/14/16 09:33 Dose: 20 meq Fluticasone/Salmeterol (Advair Diskus 250-50) 1 puff INH BIDRT [facility] Last Admin: 08/14/16 09:06 Dose: 1 puff Thiamine HCl (Vitamin B-1) 100 mg PO DAILY [facility] Last Admin: 08/14/16 09:32 Dose: 100 mg Discontinued Medications Aspirin (Halfprin) 81 mg PO WITHBREAKFAST [facility] Aspirin (Aspirin) 162 mg PO ONETIME ONE Stop: 08/11/16 17:13 Last Admin: 08/11/16 17:59 Dose: 162 mg Clopidogrel Bisulfate (Plavix) 300 mg PO ONETIME ONE Stop: 08/11/16 17:16 Last Admin: 08/11/16 17:59 Dose: 300 mg Potassium Chloride/Sodium Chloride (Normal Saline With 40 Meq Kcl) 1,000 mls @ 65 mls/hr IV ASDIRECTED [facility] Last Admin: 08/13/16 03:53 Dose: 65 mls/hr Potassium Chloride 20 meq/ (Premix) 100 mls @ 50 mls/hr IV ONETIME ONE Stop: 08/12/16 10:46 Last Admin: 08/12/16 09:26 Dose: 50 mls/hr Potassium Chloride 20 meq/ (Premix) 100 mls @ 50 mls/hr IV ONETIME ONE Stop: 08/12/16 12:59 Last Admin: 08/12/16 12:19 Dose: 50 mls/hr Piperacillin/Tazobactam/ (Dextrose 3.375 gm/ Premix) 50 mls @ 100 mls/hr IV Q6H [facility] Last Admin: 08/12/16 19:29 Dose: Not Given Metoprolol Tartrate (Lopressor) 25 mg PO DAILY [facility] Omeprazole (Omeprazole) 20 mg PO BID [facility] Potassium Chloride (Klor-Con) 25 meq PO TID [facility] Stop: 08/12/16 16:00 Last Admin: 08/12/16 17:09 Dose: Not Given Potassium Chloride (Klor-Con) 20 meq PO ASDIRECTED [facility] - Exam Quality Assessment: No: supplemental oxygen General: alert, oriented, no acute distress Neck: supple Lungs: Clear to auscultation, Normal respiratory effort Cardiovascular: Regular Rate, Regular Rhythm Abdomen: soft, no tenderness Skin: other (reviewed pictures, perineum excoriation, extreme erythremia with skin breakdown stage II) Wound/Incisions: erythema Psy/Mental Status: alert, normal affect, normal mood - Problem List Review Problem List Initiated/Reviewed/Updated: Yes - Plan Plan:: IMPRESSION/PLAN Hypokalemia-profound on admission, appetite picking up, now normal however will determine maintenance needs. Suspect she will need approximately 60-100 mEq daily. Weakness-multifactorial Hypomagnesemia, profound, likely malabsorption, will change current magnesium intake to 300 mg every 6 hours to increase absorption. Cardiac arrhythmia/tachycardia, continue with telemetry. perineal inspection, combination of yeast and Escherichia coli, definitive cultures ceftriaxone today, continue with nystatin, discontinue Zosyn. Continue Diflucan 100 mg one by mouth everyday Elevated troponin thought secondary to myocardial ischemia, type II, on telemetry, troponin normal. No chest pain. Hypoproteinemia/hypoalbuminemia, her appetite is picking up, Elevated LFTs-question etiology rule out occult pathology-concern even for remote occult tumor Self care deficit for bathing and hygiene/limited social situation, spoke with social media project manager this morning. Patient candidate for long-term care. Dyspnea/hypoxia-controlled with oxygen-suspect secondary to COPD rule out other occult pathology-baseline COPD, History of atrial fibrillation/atrial flutter-controlled at present, sinus rhythm now Essential hypertension-good control Hyperlipidemia GERD Depression/anxiety discussion today with patient and social media project manager patient agreed to long-term care Ken Montalvo. she will need another 24-48 hours acute care status.
[2016-08-14] MEDS: cefTRIAXone 1 GM Vial IVPUSH SCH (11:30)
[2016-08-14] MEDS: Acetaminophen 325 MG Tab PO PRN (12:14)
[2016-08-14] MEDS: atorvaSTATin 10 MG Tab PO SCH (20:20)
[2016-08-14] MEDS: [UNRECOGNIZED DRUG - OTHER] TOP SCH (20:20)
[2016-08-15] MEDS: Magnesium Oxide 500 MG Tab PO SCH ×4 (06:13→18:49)
[2016-08-15 08:00] LABS: CHLORIDE,CL 112 mmol/L (98-115); SODIUM,NA 141 mmol/L (136-145)
[2016-08-15] MEDS: Fluticasone/Salmeterol 250-50 MCG Inhalation Powder 14/Diskus INH SCH ×2 (08:26→20:04)
[2016-08-15] MEDS: Citalopram 20 MG Tab PO SCH (08:27)
[2016-08-15] MEDS: Aspirin 81 MG Tab.EC PO SCH (08:27)
[2016-08-15] MEDS: Potassium Chloride 20 MEQ Packet PO SCH ×2 (08:27→18:06)
[2016-08-15] MEDS: [UNRECOGNIZED DRUG - OTHER] TOP SCH (08:28)
[2016-08-15] MEDS: Clopidogrel 75 MG Tab PO SCH (08:28)
[2016-08-15] MEDS: Folic Acid 1 MG Tab PO SCH (08:28)
[2016-08-15] MEDS: Pantoprazole 40 MG Vial IVPUSH SCH (08:28)
[2016-08-15] MEDS: Fluconazole 100 MG Tab PO SCH (08:28)
[2016-08-15] MEDS: Thiamine 100 MG Tab PO SCH (08:29)
[2016-08-15] MEDS: Metoprolol Succinate 25 MG Tab.ER PO SCH (08:29)
[2016-08-15] MEDS: Cholecalciferol (Vitamin D3) 1,000 Unit Tab PO SCH (10:46)
[2016-08-15] MEDS: cefTRIAXone 1 GM Vial IVPUSH SCH (10:47)
--- NOTE | 2016-08-15 10:52 | PCM.PN ---
[id number]: new symptoms - Review of Systems General: Denies: Fever, Weakness HEENT: Reports: no symptoms Pulmonary: Reports: no symptoms Cardiovascular: Reports: No Symptoms Gastrointestinal: Reports: Diarrhea (chronic diarrhea; ) Genitourinary: Reports: incontinence. Denies: dysuria Musculoskeletal: Reports: no symptoms Skin: Reports: dryness, bruising Neurological: Reports: Pre-Existing Deficit, Difficulty Walking, Weakness, Gait Disturbance Psychiatric: Reports: mood lability - Patient Data Vitals - most recent: Last Vital Signs Temp 98.1 F 08/15/16 06:16 Pulse 95 08/15/16 08:29 Resp 18 08/15/16 06:16 BP 115/56 L 08/15/16 08:29 Pulse Ox 99 08/15/16 06:16 Weight - most recent: 120 lb 5 oz I&O - last 24 hours: Intake & Output 08/14/16 08/15/16 08/15/16 22:59 06:59 14:59 Intake Total 355 751 Balance 355 751 Lab Results last 24 hrs: Laboratory Results - last 24 hr 08/11/16 08/15/16 08/15/16 Range/Units 15:25 07:25 07:25 WBC 4.8 L (5.0-10.0) 10^3/uL RBC 3.41 L (3.80-5.50) 10^6/uL Hgb 11.4 L (12.0-16.0) g/dL Hct 34.9 L (37.0-47.0) % MCV 102.4 H (82.0-92.0) fL MCH 33.4 H (27.0-31.0) pg MCHC 32.6 (32.0-36.0) g/dL RDW 13.1 (11.5-14.5) % Plt Count 110 L (150-300) 10^3/uL MPV 7.9 (7.4-10.4) fL Neut % (Auto) 72.6 H (50.0-70.0) % Lymph % (Auto) 14.5 L (20.0-40.0) % Kimball % (Auto) 6.9 (2.0-8.0) % Eos % (Auto) 5.6 H (1.0-3.0) % Baso % (Auto) 0.4 (0.0-1.0) % Neut # (Auto) 3.5 (2.5-7.0) 10^3/uL Lymph # (Auto) 0.7 L (1.0-4.0) 10^3/uL Kimball # (Auto) 0.3 (0.1-0.8) 10^3/uL Eos # (Auto) 0.3 (0.1-0.3) 10^3/uL Baso # (Auto) 0.0 (0.0-0.1) 10^3/uL Sodium 141 (136-145) mmol/L Potassium 5.3 (3.3-5.3) mmol/L Chloride 112 (98-115) mmol/L Carbon Dioxide 22.1 (21.0-32.0) mmol/L BUN 9 (6-25) mg/dL Creatinine 0.70 (0.51-1.17) mg/dL Est Cr Clr Drug Dosing 56.54 mL/min Estimated GFR (MDRD) > 60 mL/min Glucose 62 L (70-110) mg/dL Calcium 7.1 L (8.7-10.3) mg/dL Magnesium 1.1 L (1.8-2.4) mg/dL GGT 224 H (6-55) U/L Young Results last 24 hrs: Microbiology 08/12/16 13:15 Aerobic Blood Culture - Preliminary Blood - Venous NO GROWTH AFTER 2 DAYS Anaerobic Blood Culture - Preliminary NO GROWTH AFTER 2 DAYS 08/12/16 11:45 Aerobic Blood Culture - Preliminary Blood - Venous - Lab Draw NO GROWTH AFTER 2 DAYS Anaerobic Blood Culture - Preliminary NO GROWTH AFTER 2 DAYS 08/12/16 10:15 Gram Stain - Final Buttock, Left Wound Culture - Final Corynebacterium Species Escherichia Coli 08/12/16 10:15 Wound Culture - Final Labia - Unspecified Corynebacterium Species Escherichia Coli 08/12/16 16:00 Urine Culture - Final Urine, Catheterized NO GROWTH AFTER 2 DAYS Med Orders - Current: Current Medications Acetaminophen (Tylenol) 650 mg PO Q4H PRN PRN Reason: Pain Last Admin: 08/14/16 12:14 Dose: 650 mg Aspirin (Halfprin) 81 mg PO WITHBREAKFAST [facility] Last Admin: 08/15/16 08:27 Dose: 81 mg Atorvastatin Calcium (Lipitor) 20 mg PO BEDTIME [facility] Last Admin: 08/14/16 20:20 Dose: 20 mg Calcium Citrate (Calcium Citrate + D) 1 tab PO BIDMEALS [facility] Ceftriaxone Sodium (Rocephin) 1 gm IVPUSH Q24H [facility] Last Admin: 08/14/16 11:30 Dose: 1 gm Cholecalciferol (Vitamin D3) 2,000 units PO DAILY [facility] Citalopram Hydrobromide (Celexa) 20 mg PO DAILY [facility] Last Admin: 08/15/16 08:27 Dose: 20 mg Clopidogrel Bisulfate (Plavix) 75 mg PO DAILY [facility] Last Admin: 08/15/16 08:28 Dose: 75 mg Fluconazole (Diflucan) 100 mg PO DAILY [facility] Last Admin: 08/15/16 08:28 Dose: 100 mg Folic Acid (Folic Acid) 1 mg PO DAILY [facility] Last Admin: 08/15/16 08:28 Dose: 1 mg Potassium Chloride/Sodium Chloride (Normal Saline With 40 Meq Kcl) 1,000 mls @ 70 mls/hr IV ASDIRECTED [facility] Last Admin: 08/14/16 21:52 Dose: 70 mls/hr Magnesium Oxide (Magnesium Oxide) 300 mg PO Q6H [facility] Last Admin: 08/15/16 06:13 Dose: 300 mg Metoprolol Succinate (Toprol Xl) 25 mg PO DAILY [facility] Last Admin: 08/15/16 08:29 Dose: 25 mg G.E.T. Cream Nf 0 each TOP TID [facility] Last Admin: 08/15/16 08:28 Dose: 1 each Pantoprazole Sodium (Protonix Iv) 40 mg IVPUSH DAILY [facility] Last Admin: 08/15/16 08:28 Dose: 40 mg Potassium Chloride (Klor-Con) 20 meq PO BIDMEALS [facility] Last Admin: 08/15/16 08:27 Dose: 20 meq Fluticasone/Salmeterol (Advair Diskus 250-50) 1 puff INH BIDRT [facility] Last Admin: 08/15/16 08:26 Dose: 1 puff Thiamine HCl (Vitamin B-1) 100 mg PO DAILY [facility] Last Admin: 08/15/16 08:29 Dose: 100 mg Discontinued Medications Aspirin (Halfprin) 81 mg PO WITHBREAKFAST [facility] Aspirin (Aspirin) 162 mg PO ONETIME ONE Stop: 08/11/16 17:13 Last Admin: 08/11/16 17:59 Dose: 162 mg Clopidogrel Bisulfate (Plavix) 300 mg PO ONETIME ONE Stop: 08/11/16 17:16 Last Admin: 08/11/16 17:59 Dose: 300 mg Potassium Chloride/Sodium Chloride (Normal Saline With 40 Meq Kcl) 1,000 mls @ 65 mls/hr IV ASDIRECTED [facility] Last Admin: 08/13/16 03:53 Dose: 65 mls/hr Potassium Chloride 20 meq/ (Premix) 100 mls @ 50 mls/hr IV ONETIME ONE Stop: 08/12/16 10:46 Last Admin: 08/12/16 09:26 Dose: 50 mls/hr Potassium Chloride 20 meq/ (Premix) 100 mls @ 50 mls/hr IV ONETIME ONE Stop: 08/12/16 12:59 Last Admin: 08/12/16 12:19 Dose: 50 mls/hr Piperacillin/Tazobactam/ (Dextrose 3.375 gm/ Premix) 50 mls @ 100 mls/hr IV Q6H [facility] Last Admin: 08/12/16 19:29 Dose: Not Given Piperacillin/Tazobactam/ (Dextrose 3.375 gm/ Premix) 50 mls @ 100 mls/hr IV Q6H [facility] Last Admin: 08/14/16 06:11 Dose: 100 mls/hr Potassium Chloride/Sodium Chloride (Normal Saline With 40 Meq Kcl) 1,000 mls @ 125 mls/hr IV ASDIRECTED [facility] Last Admin: 08/14/16 09:22 Dose: 125 mls/hr Magnesium Oxide (Magnesium Oxide) 500 mg PO TID [facility] Last Admin: 08/14/16 09:32 Dose: 500 mg Metoprolol Tartrate (Lopressor) 25 mg PO DAILY [facility] Nystatin (Nystatin Crm) 0 gm TOP TID [facility] Last Admin: 08/14/16 16:29 Dose: 1 applic Omeprazole (Omeprazole) 20 mg PO BID [facility] Potassium Chloride (Klor-Con) 25 meq PO TID [facility] Stop: 08/12/16 16:00 Last Admin: 08/12/16 17:09 Dose: Not Given Potassium Chloride (Klor-Con) 20 meq PO ASDIRECTED [facility] Potassium Chloride (Klor-Con) 20 meq PO TIDMEALS [facility] Last Admin: 08/14/16 09:33 Dose: 20 meq - Exam Quality Assessment: supplemental oxygen General: alert, oriented, cooperative, no acute distress Neck: supple Lungs: Clear to auscultation, Normal respiratory effort Cardiovascular: Regular Rate, Regular Rhythm, Other (history of atrial fibrillation however she is in regular sinus rhythm) Abdomen: bowel sounds present, soft, no tenderness, no distension Extremities: no edema Skin: other (reviewed photos, peroneal excoriated quite significant,) Neurological: normal speech Psy/Mental Status: alert, normal affect, normal mood - Problem List Review Problem List Initiated/Reviewed/Updated: Yes - My Orders Last 24 Hours: My Active Orders 08/14/16 10:56 Intake and Output [RC] 1400,2200,0600 08/14/16 11:00 Magnesium Oxide 300 mg PO Q6H Sodium Chloride 0.9% with KCl [Normal Saline with 40 mEq KCl] 1,000 ml IV ASDIRECTED 08/14/16 11:15 cefTRIAXone [Rocephin] 1 gm IVPUSH Q24H 08/14/16 12:05 Acetaminophen [Tylenol] 650 mg PO Q4H PRN 08/14/16 12:08 Communication Order [RC] 0900,1400,2100 08/14/16 18:00 Potassium Chloride [Klor-Con] 20 meq PO BIDMEALS 08/15/16 09:00 Cholecalciferol (Vitamin D3) [Vitamin D3] 2,000 units PO DAILY 08/15/16 18:00 Calcium Citrate/Vitamin D3 [Calcium Citrate + D] 1 tab PO BIDMEALS - Plan Plan:: IMPRESSION/PLAN Hypokalemia-profound on admission however now normal. appetite picking up, discontinue telemetry, and discontinue IV potassium, replace orally Weakness-multifactorial Hypomagnesemia, profound, likely malabsorption, 500 3 times a day perineal inspection, combination of yeast and Escherichia coli, definitive cultures ceftriaxone, continue with nystatin, Continue Diflucan 100 mg one by mouth everyday history of recent elevated troponin thought secondary to myocardial ischemia, type II, on telemetry, troponin normal. No chest pain. Hypoproteinemia/hypoalbuminemia, her appetite is picking up, Elevated LFTs-question etiology rule out occult pathology-concern even for remote occult tumor Self care deficit for bathing and hygiene/limited social situation, spoke with social media content manager this morning. Patient candidate for long-term care. Dyspnea/hypoxia-controlled with oxygen-suspect secondary to COPD rule out other occult pathology-baseline COPD, History of atrial fibrillation/atrial flutter-controlled at present, sinus rhythm now Essential hypertension-good control Hyperlipidemia GERD Depression/anxiety discontinue telemetry, discontinue IV potassium, to long-term care Ken Montalvo tomorrow.
[2016-08-15] MEDS ORDERED: Non-Formulary Medication 1 Each TOP PRN (13:54)
[2016-08-15] MEDS: Calcium Citrate/Vitamin D3 315 MG-250 Unit Tab PO SCH (18:06)
[2016-08-15] MEDS ORDERED: Zinc Oxide/Eucerin/Nystatin/Karaya 237 ML JAR TOP PRN (19:05)
[2016-08-15] MEDS: atorvaSTATin 10 MG Tab PO SCH (20:04)
[2016-08-16] MEDS: Magnesium Oxide 500 MG Tab PO SCH ×3 (03:09→18:54)
[2016-08-16] MEDS: Fluticasone/Salmeterol 250-50 MCG Inhalation Powder 14/Diskus INH SCH ×2 (08:45→19:55)
[2016-08-16] MEDS: Citalopram 20 MG Tab PO SCH (08:47)
[2016-08-16] MEDS: Aspirin 81 MG Tab.EC PO SCH (08:47)
[2016-08-16] MEDS: Clopidogrel 75 MG Tab PO SCH (08:47)
[2016-08-16] MEDS: Calcium Citrate/Vitamin D3 315 MG-250 Unit Tab PO SCH ×2 (08:47→17:36)
[2016-08-16] MEDS: Potassium Chloride 20 MEQ Packet PO SCH ×2 (08:47→17:37)
[2016-08-16] MEDS: Cholecalciferol (Vitamin D3) 1,000 Unit Tab PO SCH (08:48)
[2016-08-16] MEDS: Thiamine 100 MG Tab PO SCH (08:48)
[2016-08-16] MEDS: Fluconazole 100 MG Tab PO SCH (08:48)
[2016-08-16] MEDS: Metoprolol Succinate 25 MG Tab.ER PO SCH (08:48)
[2016-08-16] MEDS: Folic Acid 1 MG Tab PO SCH (08:48)
[2016-08-16] MEDS: Pantoprazole 40 MG Vial IVPUSH SCH ×2 (08:51→09:06)
--- NOTE | 2016-08-16 10:14 | PCM.PN ---
- General Info Date of Service: 08/16/16 Functional Status: Reports: pain controlled, tolerating diet, ambulating - Review of Systems General: Reports: Weakness, Appetite. Denies: Fever HEENT: Reports: no symptoms Pulmonary: Reports: no symptoms Cardiovascular: Reports: No Symptoms Gastrointestinal: Reports: Diarrhea Genitourinary: Reports: incontinence Neurological: Reports: Difficulty Walking, Gait Disturbance Psychiatric: Reports: no symptoms - Patient Data Vitals - most recent: Last Vital Signs Temp 99.3 F 08/16/16 06:38 Pulse 95 08/16/16 08:48 Resp 20 08/16/16 06:38 BP 114/67 08/16/16 08:48 Pulse Ox 98 08/16/16 06:38 Weight - most recent: 121 lb 1.6 oz I&O - last 24 hours: Intake & Output 08/15/16 08/16/16 08/16/16 22:59 06:59 14:59 Intake Total 580 300 Balance 580 300 Young Results last 24 hrs: Microbiology 08/12/16 13:15 Aerobic Blood Culture - Preliminary Blood - Venous NO GROWTH AFTER 3 DAYS Anaerobic Blood Culture - Preliminary NO GROWTH AFTER 3 DAYS 08/12/16 11:45 Aerobic Blood Culture - Preliminary Blood - Venous - Lab Draw NO GROWTH AFTER 3 DAYS Anaerobic Blood Culture - Preliminary NO GROWTH AFTER 3 DAYS Med Orders - Current: Current Medications Acetaminophen (Tylenol) 650 mg PO Q4H PRN PRN Reason: Pain Last Admin: 08/14/16 12:14 Dose: 650 mg Aspirin (Halfprin) 81 mg PO WITHBREAKFAST [facility] Last Admin: 08/16/16 08:47 Dose: 81 mg Atorvastatin Calcium (Lipitor) 20 mg PO BEDTIME [facility] Last Admin: 08/15/16 20:04 Dose: 20 mg Calcium Citrate (Calcium Citrate + D) 1 tab PO BIDMEALS [facility] Last Admin: 08/16/16 08:47 Dose: 1 tab Ceftriaxone Sodium (Rocephin) 1 gm IVPUSH Q24H [facility] Last Admin: 08/15/16 10:47 Dose: 1 gm Cholecalciferol (Vitamin D3) 2,000 units PO DAILY [facility] Last Admin: 08/16/16 08:48 Dose: 2,000 units Citalopram Hydrobromide (Celexa) 20 mg PO DAILY [facility] Last Admin: 08/16/16 08:47 Dose: 20 mg Clopidogrel Bisulfate (Plavix) 75 mg PO DAILY [facility] Last Admin: 08/16/16 08:47 Dose: 75 mg Diphenoxylate HCl/Atropine (Lomotil 0.025-2.5 Mg) 1 - 2 tab PO TID PRN PRN Reason: LOOSE STOOLS Fluconazole (Diflucan) 100 mg PO DAILY [facility] Last Admin: 08/16/16 08:48 Dose: 100 mg Folic Acid (Folic Acid) 1 mg PO DAILY [facility] Last Admin: 08/16/16 08:48 Dose: 1 mg Magnesium Oxide (Magnesium Oxide) 500 mg PO Q8H [facility] Last Admin: 08/16/16 03:09 Dose: 500 mg Metoprolol Succinate (Toprol Xl) 25 mg PO DAILY [facility] Last Admin: 08/16/16 08:48 Dose: 25 mg Multi-Ingred Cream/Lotion/Oil/Oint (Kmed) 0 ml TOP Q1H PRN PRN Reason: periarea excoriation Non-Formulary Medication (Nf Drug) 1 each TOP TID PRN PRN Reason: perineal irritation Pantoprazole Sodium (Protonix Iv) 40 mg IVPUSH DAILY [facility] Last Admin: 08/16/16 09:06 Dose: 40 mg Potassium Chloride (Klor-Con) 20 meq PO BIDMEALS [facility] Last Admin: 08/16/16 08:47 Dose: 20 meq Fluticasone/Salmeterol (Advair Diskus 250-50) 1 puff INH BIDRT [facility] Last Admin: 08/16/16 08:45 Dose: 1 puff Thiamine HCl (Vitamin B-1) 100 mg PO DAILY [facility] Last Admin: 08/16/16 08:48 Dose: 100 mg Discontinued Medications Aspirin (Halfprin) 81 mg PO WITHBREAKFAST [facility] Aspirin (Aspirin) 162 mg PO ONETIME ONE Stop: 08/11/16 17:13 Last Admin: 08/11/16 17:59 Dose: 162 mg Clopidogrel Bisulfate (Plavix) 300 mg PO ONETIME ONE Stop: 08/11/16 17:16 Last Admin: 08/11/16 17:59 Dose: 300 mg Potassium Chloride/Sodium Chloride (Normal Saline With 40 Meq Kcl) 1,000 mls @ 65 mls/hr IV ASDIRECTED [facility] Last Admin: 08/13/16 03:53 Dose: 65 mls/hr Potassium Chloride 20 meq/ (Premix) 100 mls @ 50 mls/hr IV ONETIME ONE Stop: 08/12/16 10:46 Last Admin: 08/12/16 09:26 Dose: 50 mls/hr Potassium Chloride 20 meq/ (Premix) 100 mls @ 50 mls/hr IV ONETIME ONE Stop: 08/12/16 12:59 Last Admin: 08/12/16 12:19 Dose: 50 mls/hr Piperacillin/Tazobactam/ (Dextrose 3.375 gm/ Premix) 50 mls @ 100 mls/hr IV Q6H [facility] Last Admin: 08/12/16 19:29 Dose: Not Given Piperacillin/Tazobactam/ (Dextrose 3.375 gm/ Premix) 50 mls @ 100 mls/hr IV Q6H [facility] Last Admin: 08/14/16 06:11 Dose: 100 mls/hr Potassium Chloride/Sodium Chloride (Normal Saline With 40 Meq Kcl) 1,000 mls @ 125 mls/hr IV ASDIRECTED [facility] Last Admin: 08/14/16 09:22 Dose: 125 mls/hr Potassium Chloride/Sodium Chloride (Normal Saline With 40 Meq Kcl) 1,000 mls @ 70 mls/hr IV ASDIRECTED [facility] Last Admin: 08/14/16 21:52 Dose: 70 mls/hr Magnesium Oxide (Magnesium Oxide) 500 mg PO TID [facility] Last Admin: 08/14/16 09:32 Dose: 500 mg Magnesium Oxide (Magnesium Oxide) 300 mg PO Q6H [facility] Last Admin: 08/15/16 10:46 Dose: 300 mg Metoprolol Tartrate (Lopressor) 25 mg PO DAILY [facility] G.E.T. Cream Nf 0 each TOP TID [facility] Last Admin: 08/15/16 08:28 Dose: 1 each Nystatin (Nystatin Crm) 0 gm TOP TID [facility] Last Admin: 08/14/16 16:29 Dose: 1 applic Omeprazole (Omeprazole) 20 mg PO BID [facility] Potassium Chloride (Klor-Con) 25 meq PO TID [facility] Stop: 08/12/16 16:00 Last Admin: 08/12/16 17:09 Dose: Not Given Potassium Chloride (Klor-Con) 20 meq PO ASDIRECTED [facility] Potassium Chloride (Klor-Con) 20 meq PO TIDMEALS [facility] Last Admin: 08/14/16 09:33 Dose: 20 meq - Exam Quality Assessment: supplemental oxygen General: alert, oriented Neck: supple Lungs: Clear to auscultation, Normal respiratory effort Cardiovascular: Regular Rate, Regular Rhythm Abdomen: bowel sounds present, soft, no tenderness, no distension Skin: other (Review photos, ongoing excoriation perineal area) Wound/Incisions: erythema (Review photos, excoriated perineal present on admission stage II open areas) Neurological: no new focal deficit Psy/Mental Status: alert, normal affect, normal mood - Problem List Review Problem List Initiated/Reviewed/Updated: Yes - My Orders Last 24 Hours: My Active Orders 08/15/16 11:15 Magnesium Oxide 500 mg PO Q8H 08/15/16 12:07 Atropine/Diphenoxylate [Lomotil 0.025-2.5 MG] 1 - 2 tab PO TID PRN 08/15/16 13:54 Non-Formulary Medication [NF Drug] 1 each TOP TID PRN 08/15/16 18:00 Calcium Citrate/Vitamin D3 [Calcium Citrate + D] 1 tab PO BIDMEALS - Plan Plan:: IMPRESSION/PLAN Hypokalemia-profound on admission however now normal. appetite picking up, no longer on telemetry, potassium 20 mEq by mouth twice a day. Will assess in the a.m. Weakness-multifactorial--improving Diarrhea, undetermined exact etiology--chronic, colonoscopy one to 2 months Hypomagnesemia, profound, likely malabsorption, 500 3 times a day--will assess in the a.m. Perineal excoriation, with stage II breakdown, combination of yeast and Escherichia coli, definitive cultures ceftriaxone, no on K-med/Karaya cream, present on admission Continue Diflucan 100 mg one by mouth daily history of recent elevated troponin thought secondary to myocardial ischemia, type II, on telemetry, troponin normal. No chest pain. Hypoproteinemia/hypoalbuminemia, her appetite has improved greatly Elevated LFTs-question etiology rule out occult pathology-concern even for remote occult tumor--reassess in a.m. Self care deficit for bathing and hygiene/limited social situation, Patient candidate for long-term care--anticipation soon Dyspnea/hypoxia-controlled with oxygen-suspect secondary to COPD rule out other occult pathology-baseline--doing well COPD, History of atrial fibrillation/atrial flutter-controlled at present, sinus rhythm now Essential hypertension-good control Hyperlipidemia GERD Depression/anxiety Overall plan, anticipate long-term care facility next 24-48 hours. Reassess LFTs , colonoscopy one to 2 months
[2016-08-16] MEDS: Acetaminophen 325 MG Tab PO PRN (10:24)
[2016-08-16] MEDS: cefTRIAXone 1 GM Vial IVPUSH SCH (10:24)
[2016-08-16] MEDS: Atropine/Diphenoxylate 0.025-2.5 MG Tab PO PRN ×2 (10:25→20:57)
[2016-08-16] MEDS: atorvaSTATin 10 MG Tab PO SCH (20:56)
[2016-08-17] MEDS: Magnesium Oxide 500 MG Tab PO SCH ×3 (03:01→18:28)
[2016-08-17 07:44] LABS: CHLORIDE,CL 108 mmol/L (98-115); SODIUM,NA 140 mmol/L (136-145)
[2016-08-17] MEDS: Folic Acid 1 MG Tab PO SCH (08:23)
[2016-08-17] MEDS: Metoprolol Succinate 25 MG Tab.ER PO SCH (08:23)
[2016-08-17] MEDS: Aspirin 81 MG Tab.EC PO SCH (08:26)
[2016-08-17] MEDS: Citalopram 20 MG Tab PO SCH (08:26)
[2016-08-17] MEDS: Calcium Citrate/Vitamin D3 315 MG-250 Unit Tab PO SCH ×2 (08:26→18:28)
[2016-08-17] MEDS: Cholecalciferol (Vitamin D3) 1,000 Unit Tab PO SCH (08:26)
[2016-08-17] MEDS: Thiamine 100 MG Tab PO SCH (08:26)
[2016-08-17] MEDS: Clopidogrel 75 MG Tab PO SCH (08:26)
[2016-08-17] MEDS: Fluconazole 100 MG Tab PO SCH (08:26)
[2016-08-17] MEDS: Pantoprazole 40 MG Vial IVPUSH SCH (08:32)
[2016-08-17] MEDS: Potassium Chloride 20 MEQ Packet PO SCH ×2 (08:47→18:44)
[2016-08-17] MEDS: Fluticasone/Salmeterol 250-50 MCG Inhalation Powder 14/Diskus INH SCH ×2 (08:51→20:30)
--- NOTE | 2016-08-17 10:49 | PCM.PN ---
- General Info Date of Service: 08/17/16 Functional Status: Reports: pain controlled - Review of Systems General: Reports: Weakness HEENT: Reports: no symptoms Pulmonary: Reports: no symptoms Cardiovascular: Reports: No Symptoms Gastrointestinal: Reports: Diarrhea (chronic) Genitourinary: Reports: incontinence Musculoskeletal: Reports: leg pain Skin: Reports: dryness, bruising. Denies: jaundice Neurological: Reports: Difficulty Walking, Weakness, Gait Disturbance. Denies: Confusion, Dizziness Psychiatric: Reports: no symptoms - Patient Data Vitals - most recent: Last Vital Signs Temp 97.2 F 08/17/16 07:00 Pulse 93 08/17/16 08:23 Resp 20 08/17/16 07:00 BP 103/62 08/17/16 08:23 Pulse Ox 97 08/17/16 07:00 Weight - most recent: 124 lb I&O - last 24 hours: Intake & Output 08/16/16 08/17/16 08/17/16 22:59 06:59 14:59 Intake Total 250 50 Balance 250 50 Lab Results last 24 hrs: Laboratory Results - last 24 hr 08/17/16 08/17/16 Range/Units 07:15 07:15 WBC 4.4 L (5.0-10.0) 10^3/uL RBC 3.23 L (3.80-5.50) 10^6/uL Hgb 10.8 L (12.0-16.0) g/dL Hct 32.8 L (37.0-47.0) % MCV 101.5 H (82.0-92.0) fL MCH 33.3 H (27.0-31.0) pg MCHC 32.8 (32.0-36.0) g/dL RDW 12.8 (11.5-14.5) % Plt Count 115 L (150-300) 10^3/uL MPV 7.5 (7.4-10.4) fL Neut % (Auto) 67.1 (50.0-70.0) % Lymph % (Auto) 20.0 (20.0-40.0) % Roane % (Auto) 6.4 (2.0-8.0) % Eos % (Auto) 5.9 H (1.0-3.0) % Baso % (Auto) 0.6 (0.0-1.0) % Neut # (Auto) 2.9 (2.5-7.0) 10^3/uL Lymph # (Auto) 0.9 L (1.0-4.0) 10^3/uL Roane # (Auto) 0.3 (0.1-0.8) 10^3/uL Eos # (Auto) 0.3 (0.1-0.3) 10^3/uL Baso # (Auto) 0.0 (0.0-0.1) 10^3/uL Sodium 140 (136-145) mmol/L Potassium 5.2 (3.3-5.3) mmol/L Chloride 108 (98-115) mmol/L Carbon Dioxide 23.8 (21.0-32.0) mmol/L BUN 6 (6-25) mg/dL Creatinine 0.67 (0.51-1.17) mg/dL Est Cr Clr Drug Dosing 59.07 mL/min Estimated GFR (MDRD) > 60 mL/min Glucose 64 L (70-110) mg/dL Calcium 8.1 L (8.7-10.3) mg/dL Magnesium 1.1 L (1.8-2.4) mg/dL Total Bilirubin 0.6 (0.2-1.0) mg/dL Direct Bilirubin 0.4 H (0.0-0.2) mg/dL AST 130 H (15-37) U/L ALT 86 H (12-78) U/L Alkaline Phosphatase 71 (46-116) IU/L Total Protein 4.9 L (6.4-8.2) g/dL Albumin 1.75 L (3.00-4.80) g/dL Young Results last 24 hrs: Microbiology 08/12/16 13:15 Aerobic Blood Culture - Preliminary Blood - Venous NO GROWTH AFTER 4 DAYS Anaerobic Blood Culture - Preliminary NO GROWTH AFTER 4 DAYS 08/12/16 11:45 Aerobic Blood Culture - Preliminary Blood - Venous - Lab Draw NO GROWTH AFTER 4 DAYS Anaerobic Blood Culture - Preliminary NO GROWTH AFTER 4 DAYS Med Orders - Current: Current Medications Acetaminophen (Tylenol) 650 mg PO Q4H PRN PRN Reason: Pain Last Admin: 08/16/16 10:24 Dose: 650 mg Aspirin (Halfprin) 81 mg PO WITHBREAKFAST [facility] Last Admin: 08/17/16 08:26 Dose: 81 mg Atorvastatin Calcium (Lipitor) 20 mg PO BEDTIME [facility] Last Admin: 08/16/16 20:56 Dose: 20 mg Calcium Citrate (Calcium Citrate + D) 1 tab PO BIDMEALS [facility] Last Admin: 08/17/16 08:26 Dose: 1 tab Ceftriaxone Sodium (Rocephin) 1 gm IVPUSH Q24H [facility] Last Admin: 08/16/16 10:24 Dose: 1 gm Cholecalciferol (Vitamin D3) 2,000 units PO DAILY [facility] Last Admin: 08/17/16 08:26 Dose: 2,000 units Citalopram Hydrobromide (Celexa) 20 mg PO DAILY [facility] Last Admin: 08/17/16 08:26 Dose: 20 mg Clopidogrel Bisulfate (Plavix) 75 mg PO DAILY [facility] Last Admin: 08/17/16 08:26 Dose: 75 mg Diphenoxylate HCl/Atropine (Lomotil 0.025-2.5 Mg) 1 - 2 tab PO TID PRN PRN Reason: LOOSE STOOLS Last Admin: 08/16/16 20:57 Dose: 2 tab Fluconazole (Diflucan) 100 mg PO DAILY [facility] Last Admin: 08/17/16 08:26 Dose: 100 mg Folic Acid (Folic Acid) 1 mg PO DAILY [facility] Last Admin: 08/17/16 08:23 Dose: 1 mg Magnesium Oxide (Magnesium Oxide) 500 mg PO Q8H [facility] Last Admin: 08/17/16 03:01 Dose: 500 mg Metoprolol Succinate (Toprol Xl) 25 mg PO DAILY [facility] Last Admin: 08/17/16 08:23 Dose: 25 mg Multi-Ingred Cream/Lotion/Oil/Oint (Kmed) 0 ml TOP Q1H PRN PRN Reason: periarea excoriation Non-Formulary Medication (Nf Drug) 1 each TOP TID PRN PRN Reason: perineal irritation Pantoprazole Sodium (Protonix Iv) 40 mg IVPUSH DAILY [facility] Last Admin: 08/17/16 08:32 Dose: 40 mg Potassium Chloride (Klor-Con) 20 meq PO BIDMEALS [facility] Last Admin: 08/17/16 08:47 Dose: 20 meq Fluticasone/Salmeterol (Advair Diskus 250-50) 1 puff INH BIDRT [facility] Last Admin: 08/17/16 08:51 Dose: 1 puff Thiamine HCl (Vitamin B-1) 100 mg PO DAILY [facility] Last Admin: 08/17/16 08:26 Dose: 100 mg Discontinued Medications Aspirin (Halfprin) 81 mg PO WITHBREAKFAST [facility] Aspirin (Aspirin) 162 mg PO ONETIME ONE Stop: 08/11/16 17:13 Last Admin: 08/11/16 17:59 Dose: 162 mg Clopidogrel Bisulfate (Plavix) 300 mg PO ONETIME ONE Stop: 08/11/16 17:16 Last Admin: 08/11/16 17:59 Dose: 300 mg Potassium Chloride/Sodium Chloride (Normal Saline With 40 Meq Kcl) 1,000 mls @ 65 mls/hr IV ASDIRECTED [facility] Last Admin: 08/13/16 03:53 Dose: 65 mls/hr Potassium Chloride 20 meq/ (Premix) 100 mls @ 50 mls/hr IV ONETIME ONE Stop: 08/12/16 10:46 Last Admin: 08/12/16 09:26 Dose: 50 mls/hr Potassium Chloride 20 meq/ (Premix) 100 mls @ 50 mls/hr IV ONETIME ONE Stop: 08/12/16 12:59 Last Admin: 08/12/16 12:19 Dose: 50 mls/hr Piperacillin/Tazobactam/ (Dextrose 3.375 gm/ Premix) 50 mls @ 100 mls/hr IV Q6H [facility] Last Admin: 08/12/16 19:29 Dose: Not Given Piperacillin/Tazobactam/ (Dextrose 3.375 gm/ Premix) 50 mls @ 100 mls/hr IV Q6H [facility] Last Admin: 08/14/16 06:11 Dose: 100 mls/hr Potassium Chloride/Sodium Chloride (Normal Saline With 40 Meq Kcl) 1,000 mls @ 125 mls/hr IV ASDIRECTED [facility] Last Admin: 08/14/16 09:22 Dose: 125 mls/hr Potassium Chloride/Sodium Chloride (Normal Saline With 40 Meq Kcl) 1,000 mls @ 70 mls/hr IV ASDIRECTED [facility] Last Admin: 08/14/16 21:52 Dose: 70 mls/hr Magnesium Oxide (Magnesium Oxide) 500 mg PO TID [facility] Last Admin: 08/14/16 09:32 Dose: 500 mg Magnesium Oxide (Magnesium Oxide) 300 mg PO Q6H [facility] Last Admin: 08/15/16 10:46 Dose: 300 mg Metoprolol Tartrate (Lopressor) 25 mg PO DAILY [facility] G.E.T. Cream Nf 0 each TOP TID [facility] Last Admin: 08/15/16 08:28 Dose: 1 each Nystatin (Nystatin Crm) 0 gm TOP TID [facility] Last Admin: 08/14/16 16:29 Dose: 1 applic Omeprazole (Omeprazole) 20 mg PO BID [facility] Potassium Chloride (Klor-Con) 25 meq PO TID [facility] Stop: 08/12/16 16:00 Last Admin: 08/12/16 17:09 Dose: Not Given Potassium Chloride (Klor-Con) 20 meq PO ASDIRECTED [facility] Potassium Chloride (Klor-Con) 20 meq PO TIDMEALS [facility] Last Admin: 08/14/16 09:33 Dose: 20 meq - Exam General: alert, oriented Lungs: Clear to auscultation, Normal respiratory effort Cardiovascular: Regular Rate, Regular Rhythm Extremities: edema (disuse edema BLE) Neurological: no new focal deficit Psy/Mental Status: alert, normal affect, normal mood - Problem List Review Problem List Initiated/Reviewed/Updated: Yes - Plan Plan:: IMPRESSION/PLAN Hypokalemia-profound on admission however now normal. appetite picking up, no longer on telemetry, Will decrease K+ to daily and closely monitor since her mag and phos are low. Anemia; hyperchromic, macrocytic, with anisocytosis, likely ETOH induced. Weakness-multifactorial--improving Diarrhea, undetermined exact etiology--chronic, colonoscopy 1-2 2 months Hypomagnesemia, profound, likely malabsorption, 500mg 3 times a day. Perineal excoriation, with stage II breakdown, combination of yeast and Escherichia coli, definitive cultures ceftriaxone, placed on K-med/Karaya cream , present on admission Continue Diflucan 100 mg one by mouth daily History of recent elevated troponin thought secondary to myocardial ischemia, type II, now off telemetry, troponin normal. No chest pain. Hypoproteinemia/hypoalbuminemia, her appetite has improved greatly, Boost supplement. No teeth exacerbates her nutritional status. Elevated LFTs-question etiology rule out occult pathology-concern even for remote occult tumor--reassess in a.m. Self care deficit for bathing and hygiene/limited social situation, Patient candidate for long-term care--anticipation soon Dyspnea/hypoxia-controlled with oxygen-suspect secondary to COPD rule out other occult pathology-baseline--doing well COPD, stable. History of atrial fibrillation/atrial flutter-controlled at present, sinus rhythm now Essential hypertension-good control Hyperlipidemia GERD Depression/anxiety Overall plan, anticipate long-term care facility next 24 hrs, waiting on placement
[2016-08-17] MEDS: cefTRIAXone 1 GM Vial IVPUSH SCH (10:56)
[2016-08-17] MEDS: Atropine/Diphenoxylate 0.025-2.5 MG Tab PO PRN (14:54)
[2016-08-17] MEDS: atorvaSTATin 10 MG Tab PO SCH (20:31)
[2016-08-17] MEDS: Atropine/Diphenoxylate 0.025-2.5 MG Tab PO SCH (22:49)
[2016-08-18] MEDS: Atropine/Diphenoxylate 0.025-2.5 MG Tab PO SCH ×2 (05:11→10:29)
[2016-08-18 06:45] VITALS: BP 111/57
[2016-08-18] MEDS: Fluticasone/Salmeterol 250-50 MCG Inhalation Powder 14/Diskus INH SCH (07:35)
[2016-08-18 08:05] LABS: CHLORIDE,CL 107 mmol/L (98-115); SODIUM,NA 137 mmol/L (136-145)
[2016-08-18] MEDS: Calcium Citrate/Vitamin D3 315 MG-250 Unit Tab PO SCH (08:21)
[2016-08-18] MEDS: Aspirin 81 MG Tab.EC PO SCH (08:21)
[2016-08-18] MEDS: Potassium Chloride 20 MEQ Packet PO SCH (08:21)
[2016-08-18] MEDS: Citalopram 20 MG Tab PO SCH (08:21)
[2016-08-18] MEDS: Thiamine 100 MG Tab PO SCH (08:22)
[2016-08-18] MEDS: Clopidogrel 75 MG Tab PO SCH (08:22)
[2016-08-18] MEDS: Fluconazole 100 MG Tab PO SCH (08:22)
[2016-08-18] MEDS: Metoprolol Succinate 25 MG Tab.ER PO SCH (08:22)
[2016-08-18] MEDS: Folic Acid 1 MG Tab PO SCH (08:22)
[2016-08-18] MEDS: Cholecalciferol (Vitamin D3) 1,000 Unit Tab PO SCH (08:22)
[2016-08-18] MEDS: Pantoprazole 40 MG Vial IVPUSH SCH (08:30)
[2016-08-18] MEDS ORDERED: Magnesium Oxide 500 MG Tab PO SCH (09:00)
--- NOTE | 2016-08-18 12:16 | DISCH ---
REASON FOR ADMISSION: Weakness, chronic diarrhea, fecal incontinence, leg pain, difficulty walking, gait disturbances, confusion, and perineal excoriation. At the time of admission, the patient was actually going to see the oncologist, Dr. Weber, but routine labs noted that her potassium was 2.2 and she was quite weak with self-care issues and neglect. PAST MEDICAL HISTORY: Her past history is positive for COPD with shock and respiratory failure requiring intubation on 01/21/2013, depression, hypertension, hyperlipidemia, GERD, alcohol dependency, tobacco addiction, history of hypermagnesemia, history of osteoporosis, atrial flutter with a rapid ventricular response on 05/14/2015, history of GI bleed, and chronic diarrhea. PAST SURGICAL HISTORY: Includes total hysterectomy and for nonmalignant reasons and right hip fracture on 01/21/2013. The patient was admitted to hospital and treated for hypomagnesemia and hypokalemia, and also anemia. Her hemoglobin is 10.8, white count is 4.1, platelet count was 115. Serum sodium was 140, potassium 4.2, BUN 6, and creatinine 0.67. Magnesium is still low at 1.1. Calcium was also low at 8.1. AST was high at 130, normal 37; and ALT is 86, normal 78. HOSPITAL COURSE: The patient was treated with IV potassium and oral magnesium. She was given Lomotil for diarrhea, which stopped. She was also treated with Zosyn temporarily for infection of the skin and the lungs. At the time of discharge, her excoriation of the perineal area has improved quite nicely. She has no pneumonia at this time. She was continued on her previous medications that included aspirin 81 mg daily, clopidogrel 300 mg daily, potassium chloride 20 mEq once daily, magnesium oxide 1 g t.i.d., metoprolol tartrate 25 mg daily, cream to her perineal area, omeprazole 20 mg once a day. At the time of discharge, 1. The hypokalemia has improved and is normal. 2. Anemia is hyperchromic macrocytic with anisocytosis probably ethanol induced. Weakness was improved. Diarrhea has also gotten better. This is most likely due to irritable bowel syndrome. She will need to have a colonoscopy after she improves in approximately 4-6 weeks. Hypomagnesemia is still low and is being corrected. Perineal excoriation was stage II breakdown with a combination of yeast and E coli. After definitive cultures were obtained, she was placed briefly on ceftriaxone and Karaya cream. At the time of discharge, the antibiotics will be discontinued. She also had a recent elevated troponin and this was felt to be secondary to myocardial ischemia, but repeat troponin was normal. There was no chest pain induced. She has hypoalbuminemia, hyperproteinemia, elevated liver function tests due to her alcohol intake. She also has self-care deficit for bathing and hygiene. This has to be looked into after the time of discharge also. The patient's COPD is stable. Dyspnea is stable. Hypertension is stable. Mental condition is stable. Hyperlipidemia, GERD, and atrial fibrillation have been stable. The patient is being transferred to [facility] [place] and will be seen back in followup after she returns from that institution. /[id number]/MODL
--- NOTE | 2016-08-22 10:08 | PN ---
08/18/2016PATIENT NAME: TIM HENSON This elderly patient was seen today for followup. She has been doing fairly well. She is anticipating on going home today. 1. Her hypopotassemia has been corrected. Her hypomagnesemia is still being corrected. Her depression has improved. Her COPD is improved. She has no significant infection. She still has perianal excoriation that is being treated. She has no chest pain. She does have a history of ischemic heart disease, however. She has multiple other issues including depression, which is stable; GERD, stable; hyperlipidemia, stable; weakness, improved and improving. Hypoalbuminemia, this is a nutritional deficiency that has to be corrected over time. She has history of alcoholism with elevated liver function tests, need to be followed up. Self-care and self-neglect issues have to be addressed at discharge. /[id number]/MODL
--- NOTE | 2016-10-02 08:01 | PN ---
09/29/2016PATIENT NAME: TIM HENSON ADDENDUM: Addition to the discharge summary on this patient. FINAL DIAGNOSES: 1. Hypokalemia. 2. Hyperchromic microcytic anemia. 3. Weakness. 4. Diarrhea. 5. Irritable bowel syndrome. 6. Hypomagnesemia. 7. Perineal excoriation with stage II breakdown. 8. Hypoalbuminemia. 9. Leukocytosis. 10.Self-care deficit. 11.Chronic obstructive pulmonary disease. 12.Hyperlipidemia. 13.Hypertension. 14.Gastroesophageal reflux disease. 15.Atrial fibrillation. /[id number]/MODL
== END 2016-08-18 10:40 | DRG 641 ==
LOC: KA.MS 15:09
PROVIDERS: ADMIT Nurse Practitioner Family; ATTEND Family Medicine
DX: E87.6 Hypokalemia (principal); B37.89 Other sites of candidiasis; D53.9 Nutritional anemia, unspecified; R53.1 Weakness; K58.0 Irritable bowel syndrome with diarrhea; E83.42 Hypomagnesemia; R71.8 Other abnormality of red blood cells; E88.09 Other disorders of plasma-protein metabolism, not elsewhere classified; R79.89 Other specified abnormal findings of blood chemistry; J44.9 Chronic obstructive pulmonary disease, unspecified; I10 Essential (primary) hypertension; I48.91 Unspecified atrial fibrillation; E78.5 Hyperlipidemia, unspecified; K21.9 Gastro-esophageal reflux disease without esophagitis; F41.8 Other specified anxiety disorders; L98.491 Non-pressure chronic ulcer of skin of other sites limited to breakdown of skin; B96.20 Unspecified Escherichia coli [E. coli] as the cause of diseases classified elsewhere; R06.00 Dyspnea, unspecified; F10.20 Alcohol dependence, uncomplicated; Z74.1 Need for assistance with personal care; Z79.899 Other long term (current) drug therapy; Z88.8 Allergy status to other drugs, medicaments and biological substances
CPT/HCPCS: 36415; 36416; 71020; 80048; 80053; 80076; 81001; 82977; 83735; 84100; 84484; 85025; 87040; 87070; 87077; 87086; 87186; 87205; 87324; 93005; 94640; 97162-GP; A9270-GY; C9113; J0696; J2543; J3480

== ENCOUNTER 2017-12-26 08:22 | Day surgery (SDC) | payer MEDICARE, OTHER ==
[~2017-12-26 08:22] MED LIST: Lactated Ringers 1,000 ML IV SCH; Sodium Chloride 0.9% 5 ML Syringe FLUSH PRN
[2017-12-26] MEDS ORDERED: Propofol 200 MG/20 ML SDV ONE (08:26)
[2017-12-26] MEDS ORDERED: fentaNYL 100 MCG/2 ML SDV ONE (08:26)
[2017-12-26] MEDS ORDERED: Midazolam 1 MG/ML 2 ML SDV ONE (08:26)
[2017-12-26] MEDS ORDERED: Sodium Chloride 0.9% 5 ML Syringe FLUSH PRN (08:30)
[2017-12-26] MEDS ORDERED: Lactated Ringers 1,000 ML IV SCH (08:30)
[2017-12-26] MEDS ORDERED: EPINEPHrine 1:10,000 1 MG/10 ML Syringe ONE ×2 (08:57→10:35)
[2017-12-26] MEDS ORDERED: Albuterol/Ipratropium 3.0-0.5 MG/3 ML Neb Soln NEB ONE (09:30)
[2017-12-26] MEDS ORDERED: fentaNYL 100 MCG/2 ML SDV IV ONE (10:03)
[2017-12-26] MEDS ORDERED: Midazolam 1 MG/ML 2 ML SDV IV ONE (10:03)
[2017-12-26] MEDS ORDERED: Propofol 200 MG/20 ML SDV IV ONE (10:03)
[2017-12-26] MEDS ORDERED: Lactated Ringers 1,000 ML ONE (10:13)
--- NOTE | 2017-12-26 12:18 | PCM.OPNOTE ---
- General Post-Op/Procedure Note Date of Surgery/Procedure: 12/26/17 Operative Procedure(s): upper GI endoscopywith biopsies and lower GI endoscopy with polypectomies. Findings: his patient has chronic diarrhea and anemia. Upper and lower GI endoscopies at the proposed today. Pre Op Diagnosis: chronic diarrhea and anemia. Post-Op Diagnosis: polypoid area noted in the second part of the duodenum mild antral gastritis. 2 polyps were noted in the colon and one in the descending colon and one at the ileocecal junction. Polypectomies were performed.A few diverticula were noted in the sigmoid colon. The rest of examination was normal. Anesthesia Technique: MAC, Moderate Sedation Primary Surgeon: Luigi Evangelista Condition: Good Free Text/Narrative:: INFORMED CONSENT: Patient is here today for elective colonoscopy. All aspects of this procedure have been discussed with the patient. All possible complications also, including possibility of perforation, infection, pain, bleeding and unknown complications. In the event of perforation patient may need to have abdominal exploration, colon resection, colostomy and even was discussed. Anesthetic complications were handled by anesthesia department. The patient understands fully well. Patient did not have any further questions for me at the end of my interview. The patient wishes for me to proceed. PREOPERATIVE DIAGNOSIS/INDICATIONS: [As above for upper Gi endoscopy] POSTOPERATIVE DIAGNOSIS: [2 Polyps of the colon, one at the descending colon and the other at the cecum. ] INSTRUMENT USED: Olympus videocolonoscope. ASA CLASSIFICATION: [2] ANESTHESIA: Continuous EKG, oximetry and intermittent blood pressure and respiratory monitoring were performed throughout the procedure. IV Versed and Fentanyl were administered. PROCEDURE PERFORMED: Colonoscopy POSITIONS OF PATIENT: Left lateral. RECTUM: Normal. SIGMOID COLON: Normal. DESCENDING COLON: a flat polyp was seen and removed using the loop and electrocautery. . SPLENIC FLEXURE: Normal. TRANSVERSE COLON: Normal. HEPATIC FLEXURE: Normal. ASCENDING COLON: Normal. CECUM: A flat polyp wa seen and removed using the loop, electrocautery and polyp retriever. . ILEOCECAL VALVE: Normal. BIOPSY: None. TOLERANCE: Excellent. COMPLICATIONS: None.
[2017-12-26 14:05] VITALS: BP 114/62
== END 2017-12-26 13:20 | disposition home or self-care (01) ==
LOC: KA.SDS 08:22
PROVIDERS: ATTEND Family Medicine
DX: K52.9 Noninfective gastroenteritis and colitis, unspecified (principal); D64.9 Anemia, unspecified; D12.0 Benign neoplasm of cecum; D12.4 Benign neoplasm of descending colon; K57.30 Diverticulosis of large intestine without perforation or abscess without bleeding; K31.7 Polyp of stomach and duodenum; K29.80 Duodenitis without bleeding; K29.50 Unspecified chronic gastritis without bleeding; I12.9 Hypertensive chronic kidney disease with stage 1 through stage 4 chronic kidney disease, or unspecified chronic kidney disease; N18.3 Chronic kidney disease, stage 3 (moderate); J43.9 Emphysema, unspecified; F17.210 Nicotine dependence, cigarettes, uncomplicated; E78.5 Hyperlipidemia, unspecified; F32.9 Major depressive disorder, single episode, unspecified; Z79.82 Long term (current) use of aspirin; Z79.51 Long term (current) use of inhaled steroids; Z79.899 Other long term (current) drug therapy; Z88.5 Allergy status to narcotic agent; Z91.048 Other nonmedicinal substance allergy status
CPT/HCPCS: 00813; 93005; 94640; J0171; J2250; J2704; J3010; J7120; J7620-GY

== ENCOUNTER 2018-10-25 09:32 | Inpatient (IN) | payer MEDICARE, OTHER ==
[2018-10-25] MEDS ORDERED: EPINEPHrine 1:10,000 1 MG/10 ML Syringe IVPUSH PRN (10:53)
[2018-10-25] MEDS ORDERED: Sodium Chloride 0.9% 10 ML Syringe FLUSH PRN (10:53)
[2018-10-25] MEDS ORDERED: Atropine 0.1 MG/ML 10 ML Syringe IVPUSH PRN (10:53)
[2018-10-25] MEDS ORDERED: Nitroglycerin 0.4 MG Tab.SL SL PRN (10:53)
[2018-10-25] MEDS ORDERED: Acetaminophen 325 MG Tab PO PRN (10:53)
[2018-10-25] MEDS ORDERED: Atropine/Diphenoxylate 0.025-2.5 MG Tab PO PRN (10:53)
[2018-10-25] MEDS ORDERED: Lidocaine 2% 100 MG/5 ML Syringe IVPUSH PRN (10:53)
--- NOTE | 2018-10-25 11:17 | PCM.HP ---
H&P History of Present Illness - General Date of Service: 10/25/18 Admit Problem/Dx: Admission Diagnosis/Problem Admission Diagnosis/Problem Weakness Source of Information: Patient, Old Records History Limitations: Reports: No Limitations - Related Data Allergies/Adverse Reactions: Allergies Allergy/AdvReac Type Severity Reaction Status Date / Time morphine Allergy Nausea and Verified 10/18/18 16:25 Vomiting nickel Allergy Rash Verified 10/18/18 16:25 Home Medications: Home Meds atorvaSTATin [Lipitor] 20 mg PO DAILY 01/04/15 [History] Calcium Carbonate/Vitamin D3 [Calcium 500-Vit D3 400 Tablet] 1 each PO BIDMEALS 06/15/15 [History] Citalopram [Celexa] 10 mg PO DAILY 06/15/15 [History] Fluticasone/Salmeterol [Advair Diskus 250-50] 1 puff INH BID 06/15/15 [History] Folic Acid 1 mg PO DAILY 06/15/15 [History] Magnesium Oxide [Magnesium] 500 mg PO TID 06/15/15 [History] Cholecalciferol (Vitamin D3) [Vitamin D3] 2,000 unit PO DAILY 08/11/16 [History] Aspirin [Halfprin] 81 mg PO WITHBREAKFAST tab.ec 08/18/16 [Rx] Thiamine [Vitamin B-1] 100 mg PO DAILY tablet 08/18/16 [Rx] Atropine/Diphenoxylate [Lomotil 0.025-2.5 MG] 1 tab PO TID PRN 11/13/17 [History ] Furosemide [Lasix] 20 mg PO DAILY 11/13/17 [History] Potassium Gluconate [Potassium] 595 mg PO BID 11/13/17 [History] Metoprolol Succinate [Toprol XL] 12.5 mg PO DAILY 10/18/18 [History] Past Medical History HEENT History: Reports: Cataract, Hard of Hearing, Impaired Vision Cardiovascular History: Reports: High Cholesterol, Hypertension Other Cardiovascular History: tachycardia,hypomagnesiumism,hypokalemia Respiratory History: Reports: COPD Gastrointestinal History: Reports: Chronic Diarrhea, GERD, GI Bleed, Hemorrhoids Genitourinary History: Reports: None [employer] History: Reports: Musculoskeletal History: Reports: Back Pain, Chronic, Fracture Other Musculoskeletal History: Crushed by elevator in 2011 Psychiatric History: Reports: Depression Endocrine/Metabolic History: Reports: None Immunologic History: Reports: None Dermatologic History: Reports: Other (See Below) Other Dermatologic History: chronic dry skin - Infectious Disease History Infectious Disease History: Reports: Chicken Pox, Measles, Mumps - Past Surgical History HEENT Surgical History: Reports: Cataract Surgery Respiratory Surgical History: Reports: None Female Surgical History: Reports: Hysterectomy, Salpingo-Oophorectomy Endocrine Surgical History: Reports: None Social & Family History - Family History Family Medical History: Noncontributory Cardiac: Reports: Hypertension - Caffeine Use Caffeine Use: Reports: Coffee - Living Situation & Occupation Living situation: Reports: Occupation: Retired H&P Review of Systems - Review of Systems: Review Of Systems: See Below General: Reports: Malaise, Weakness. Denies: Fever, Night Sweats, Diaphoresis, Decreased Appetite HEENT: Reports: No Symptoms Pulmonary: Denies: Shortness of Breath, Pleuritic Chest Pain, Sputum, Hemoptysis Cardiovascular: Reports: Dyspnea on Exertion, Blood Pressure Problem Gastrointestinal: Reports: Diarrhea. Denies: Black Stool, Melena Genitourinary: Reports: Incontinence Musculoskeletal: Reports: No Symptoms Skin: Reports: Dryness, Bruising. Denies: Mottled, Rash, Urticaria Psychiatric: Denies: Confusion, Agitation Neurological: Reports: Difficulty Walking, Weakness, Gait Disturbance. Denies: Confusion, Dizziness, Change in Speech Hematologic/Lymphatic: Reports: Anemia, Easy Bleeding Immunologic: Reports: No Symptoms Exam - Exam Exam: See Below - Exam Quality Assessment: Supplemental Oxygen, DVT Prophylaxis (factor Xa) General: Alert, Oriented, 4 HEENT: Mucosa Moist & [place], Nares Patent Neck: No: JVD Lungs: Decreased Breath Sounds. No: Rales, Rhonchi Cardiovascular: Regular Rate, Regular Rhythm. No: Tachycardia GI/Abdominal Exam: Soft, Non-Tender (Female) Exam: Deferred Rectal (Female) Exam: No: Bloody Stool Back Exam: No: CVA Tenderness (L), CVA Tenderness (R) Extremities: Normal Capillary Refill Peripheral Pulses: 2+: Radial (L), Radial (R) Skin: Dry Neurological: Cranial Nerves Intact, Reflexes Equal Bilateral Neuro Extensive - Mental Status: Alert, Oriented x3, Normal Mood/Affect, Normal Cognition Neuro Extensive - Motor, Sensory, Reflexes: CN II-XII Intact, Normal Gait, Normal Reflexes Psychiatric: Alert, Normal Affect, Normal Mood Problem List Initiated/Reviewed/Updated: Yes Orders Last 24hrs: Active Orders 24 hr Category Date Time Status Patient Status [ADT] Routine ADT 10/25/18 10:53 Active Antiembolic Devices [RC] .Routine Care 10/25/18 10:53 Active Communication Order [RC] ASDIRECTED Care 10/25/18 10:53 Active Intake and Output [RC] QSHIFT Care 10/25/18 10:53 Active Oxygen Therapy [RC] PRN Care 10/25/18 10:53 Active Peripheral IV Care [RC] . DIRECTED Care 10/25/18 10:53 Active Peripheral IV Care [RC] . DIRECTED Care 10/25/18 10:53 Active RT Aerosol Therapy [RC] ASDIRECTED Care 10/25/18 10:53 Active RT Post Treatment Assessment [RC] Click to Edit Care 10/25/18 10:53 Active RT Pre-Treatment Assessment [RC] Click to Edit Care 10/25/18 10:53 Active Telemetry Monitoring [Cardiac Monitoring] [RC] . Care 10/25/18 10:53 Active DIRECTED Up ad Carol [RC] ASDIRECTED Care 10/25/18 10:53 Active Vital Signs [RC] Q4H Care 10/25/18 10:53 Active Consult to Physical Therapy [PT Evaluation and Cons 10/25/18 10:53 Active Treatment] [CONS] Routine Regular Diet [DIET] Diet 10/25/18 Lunch Active CULTURE BLOOD [BC] Stat Lab 10/25/18 10:53 Ordered CULTURE BLOOD [BC] Stat Lab 10/25/18 10:53 Ordered Acetaminophen [Tylenol] Med 10/25/18 10:53 Ordered 650 mg PO Q4H PRN Apixaban [Eliquis] Med 10/25/18 21:00 Ordered 5 mg PO BID Aspirin [Halfprin] Med 10/26/18 08:00 Ordered 81 mg PO WITHBREAKFAST Atropine [Atropine 0.1 MG/ML] Med 10/25/18 10:53 Ordered 0.5 - 1 mg IVPUSH ASDIRECTED PRN Atropine/Diphenoxylate [Lomotil 0.025-2.5 MG] Med 10/25/18 10:53 Ordered 1 tab PO TID PRN Azithromycin [Zithromax] Med 10/26/18 09:00 Ordered 250 mg PO DAILY Calcium Citrate/Vitamin D3 [Calcium Citrate + D] Med 10/25/18 18:00 Ordered 2 tab PO BIDMEALS Cholecalciferol (Vitamin D3) [Vitamin D3] Med 10/26/18 09:00 Ordered 50 mcg PO DAILY Citalopram [Celexa] Med 10/26/18 09:00 Ordered 10 mg PO DAILY EPINEPHrine [EPINEPHrine 1:10,000] Med 10/25/18 10:53 Ordered 1 mg IVPUSH ASDIRECTED PRN Fluticasone/Salmeterol [Advair Diskus 250-50] Med 10/25/18 21:00 Ordered 1 puff INH BID Folic Acid Med 10/26/18 09:00 Ordered 1 mg PO DAILY Lidocaine 2% [Xylocaine 2%] Med 10/25/18 10:53 Ordered 50 - 75 mg IVPUSH ASDIRECTED PRN Magnesium Oxide Med 10/25/18 14:00 Ordered 500 mg PO TID Metoprolol Tartrate [Lopressor] Med 10/25/18 21:00 Ordered 12.5 mg PO BID Nitroglycerin [Nitrostat] Med 10/25/18 10:53 Ordered 0.4 mg SL ASDIRECTED PRN Potassium Gluconate [Potassium] Med 10/25/18 21:00 Hold 0 mg PO BID Ramelteon [Rozerem] Med 10/25/18 21:00 Ordered 8 mg PO BEDTIME Sodium Chloride 0.9% [Normal Saline] 1,000 ml Med 10/25/18 10:53 Ordered IV ASDIRECTED Sodium Chloride 0.9% [Saline Flush] Med 10/25/18 10:53 Ordered 10 ml FLUSH Q8HR PRN Sodium Chloride 0.9% [Saline Flush] Med 10/25/18 10:53 Ordered 10 ml FLUSH Q8HR PRN Thiamine [Vitamin B-1] Med 10/26/18 09:00 Ordered 100 mg PO DAILY atorvaSTATin [Lipitor] Med 10/26/18 09:00 Ordered 20 mg PO DAILY Blood Culture x2 Reflex Set [OM.PC] Stat Oth 10/25/18 10:53 Ordered Peripheral IV Insertion Adult [OM.PC] Routine Oth 10/25/18 10:53 Ordered Resuscitation Status Routine Resus Stat 10/25/18 10:56 Ordered Medication Orders Acetaminophen (Tylenol) 650 mg PO Q4H PRN PRN Reason: Pain Apixaban (Eliquis) 5 mg PO BID [facility] Aspirin (Halfprin) 81 mg PO WITHBREAKFAST [facility] Atorvastatin Calcium (Lipitor) 20 mg PO DAILY [facility] Atropine Sulfate (Atropine 0.1 Mg/Ml) 0.5 - 1 mg IVPUSH ASDIRECTED PRN PRN Reason: Heart. Azithromycin (Zithromax) 250 mg PO DAILY [facility] Calcium Citrate (Calcium Citrate + D) 2 tab PO BIDMEALS [facility] Cholecalciferol (Vitamin D3) 50 mcg PO DAILY [facility] Citalopram Hydrobromide (Celexa) 10 mg PO DAILY [facility] Diphenoxylate HCl/Atropine (Lomotil 0.025-2.5 Mg) 1 tab PO TID PRN PRN Reason: Diarrhea Epinephrine HCl (Epinephrine 1:10,000) 1 mg IVPUSH ASDIRECTED PRN PRN Reason: Heart. Folic Acid (Folic Acid) 1 mg PO DAILY [facility] Sodium Chloride (Normal Saline) 1,000 mls @ 65 mls/hr IV ASDIRECTED [facility] Lidocaine HCl (Xylocaine 2%) 50 - 75 mg IVPUSH ASDIRECTED PRN PRN Reason: Heart. Magnesium Oxide (Magnesium Oxide) 500 mg PO TID [facility] Metoprolol Tartrate (Lopressor) 12.5 mg PO BID [facility] Nitroglycerin (Nitrostat) 0.4 mg SL ASDIRECTED PRN PRN Reason: Heart. Non-Formulary Medication (Potassium Gluconate [Potassium]) 0 mg PO BID [facility] Ramelteon (Rozerem) 8 mg PO BEDTIME [facility] Fluticasone/Salmeterol (Advair Diskus 250-50) 1 puff INH BID [facility] Sodium Chloride (Saline Flush) 10 ml FLUSH Q8HR PRN PRN Reason: keep vein open Sodium Chloride (Saline Flush) 10 ml FLUSH Q8HR PRN PRN Reason: keep vein open Thiamine HCl (Vitamin B-1) 100 mg PO DAILY [facility] Assessment/Plan Comment:: History of Present Illness Alysia is a 77 y/o old female who was seen/evaluated at the [facility] on by Dr. Ki Evangelista when she initially was seen in outpatient clinic due to complaints of weakness and dizziness, she has had multiple admissions in the past due to self-care neglect and had been in the long-term ~2 years ago. She was noted to be hypotensive at 72/40. she spent a few days status mainly due to new onset atrial fibrillation and tachycardia requiring multiple rounds of heart medications. upon initial admission into acute care. Acute care [facility]: OBS: 10/18-10/20 Inpt: 10/20 -10/25 SB: admit 10/25 Went fairly well however she did have new onset atrial fibrillation that converted to SR with multiple rounds of beta blockade therapy however had sinus tachycardia 140s for approximaty 24 hours then Cardizem CD was given on the night of October 24 and heart rate responded well 70s-90s, however with mild Asymptomatic hypotension without hemodynamic sequela--no chest pain/ chest palpitations. She remained on telemetry. She did have right middle lobe pneumonia that was treated successfully with Rocephin and azithromycin. QTc interval was monitored, antibiotics were eventually de-escalated. PT/RT/SS/RX consultation, she has had extensive medication education and compliance reinforcement especially on her Advair as she was not taking this at home consistently. Due to her debilitation, self-care neglect, PT the was consulted and she met SNF qualifications here at [facility]. Primary SNF problems --Weakness/debilitation/self-care neglect --Atrial fibrillation, paroxysmal, spontaneous conversion to NSR, [id number] , started anticoagulation, tolerating well, will keep ASA --Pneumonia, RML , CAP, de-escalate ABX therapy, stop date placed --Hypoxia; patient has been on supplemental O2 since arrival. Initial CXR shows pulmonary hyperinflation but otherwise unremarkable CT RML --Anemia, combined EUGENIO/ACD Chronic problems: --Chronic diarrhea- monitor for diarrhea symptoms. Monitor fluid and electrolytes periodically. Lomotil PRN --Hypertension, essential --HLD- CHOL 192, HDL 80 , LDL 95: On moderate dose statin therapy--adequate --Iron deficiency anemia. --COPD, noncompliant with her medications per spouse, on Advair, but does not use medication. She does require night-time O2. --Start DuoNebs --Chronic alcoholism- GGTP normal on admission, supplemental Folate and Thiamine --History of Hypomagnesemia, supplemental magnesium --History of NSTEMI, ASA with DAPT --Depression, stable --Esophageal reflux, will place on PPI since FENG, DAPT, ICS --Osteoporosis --chronic facet joint syndrome with low back pain disposition plan --Admitted to [facility] --Physical therapyfer to SNF here at [facility] -Add FABY Princem -telemetry required ~24 hours since monitoring ongoing cardiac meds -Nursing/Rx staff educate on patient on Eliquis and Resp meds compliance
[2018-10-25] MEDS: Sodium Chloride 0.9% 1,000 ML IV SCH (13:46)
[2018-10-25] MEDS: Magnesium Oxide 500 MG Tab PO SCH ×2 (13:46→20:39)
[2018-10-25] MEDS: Calcium Citrate/Vitamin D3 315 MG-250 Unit Tab PO SCH (18:16)
[2018-10-25] MEDS: Fluticasone/Salmeterol 250-50 MCG Inhalation Powder 14/Diskus INH SCH (20:37)
[2018-10-25] MEDS: Apixaban 5 MG Tab PO SCH (20:38)
[2018-10-25] MEDS ORDERED: POTASSIUM GLUCONATE PO SCH (21:00)
[2018-10-25] MEDS: Metoprolol Tartrate 25 MG Tab PO SCH (22:30)
[2018-10-26] MEDS: Sodium Chloride 0.9% 1,000 ML IV SCH (05:28)
[2018-10-26] MEDS: Cholecalciferol (Vitamin D3) 25 MCG Tab PO SCH (08:59)
[2018-10-26] MEDS: atorvaSTATin 10 MG Tab PO SCH (08:59)
[2018-10-26] MEDS: Folic Acid 1 MG Tab PO SCH (08:59)
[2018-10-26] MEDS: Apixaban 5 MG Tab PO SCH ×2 (08:59→21:24)
[2018-10-26] MEDS: Magnesium Oxide 500 MG Tab PO SCH ×3 (08:59→21:24)
[2018-10-26] MEDS ORDERED: Metoprolol Succinate 25 MG Tab.ER PO SCH (09:00)
[2018-10-26] MEDS ORDERED: Azithromycin 250 MG Tab PO SCH (09:00)
[2018-10-26] MEDS: Calcium Citrate/Vitamin D3 315 MG-250 Unit Tab PO SCH ×2 (09:01→18:08)
[2018-10-26] MEDS: Citalopram 20 MG Tab PO SCH (09:02)
[2018-10-26] MEDS: Aspirin 81 MG Tab.EC PO SCH (09:02)
[2018-10-26] MEDS: Diltiazem 120 MG Cap.CD PO SCH (09:03)
[2018-10-26] MEDS: Fluticasone/Salmeterol 250-50 MCG Inhalation Powder 14/Diskus INH SCH ×2 (09:04→21:25)
[2018-10-26] MEDS: Thiamine 100 MG Tab PO SCH (09:06)
[2018-10-26] MEDS: Metoprolol Tartrate 25 MG Tab PO SCH ×2 (11:15→22:30)
[2018-10-26] MEDS: Sodium Chloride 0.9% 10 ML Syringe FLUSH PRN (14:49)
[2018-10-26] MEDS ORDERED: Metoprolol Tartrate 25 MG Tab PO ONE (17:57)
[2018-10-27] MEDS: Sodium Chloride 0.9% 1,000 ML IV SCH ×2 (04:21→19:51)
[2018-10-27] MEDS: atorvaSTATin 10 MG Tab PO SCH (08:56)
[2018-10-27] MEDS: Apixaban 5 MG Tab PO SCH ×2 (08:56→20:53)
[2018-10-27] MEDS: Aspirin 81 MG Tab.EC PO SCH (08:56)
[2018-10-27] MEDS: Thiamine 100 MG Tab PO SCH (08:56)
[2018-10-27] MEDS: Folic Acid 1 MG Tab PO SCH (08:56)
[2018-10-27] MEDS: Cholecalciferol (Vitamin D3) 25 MCG Tab PO SCH (08:57)
[2018-10-27] MEDS: Calcium Citrate/Vitamin D3 315 MG-250 Unit Tab PO SCH ×2 (08:57→18:05)
[2018-10-27] MEDS: Magnesium Oxide 500 MG Tab PO SCH ×3 (08:57→20:53)
[2018-10-27] MEDS: Diltiazem 120 MG Cap.CD PO SCH (08:57)
[2018-10-27] MEDS: Citalopram 20 MG Tab PO SCH (08:58)
[2018-10-27] MEDS: Metoprolol Tartrate 25 MG Tab PO SCH ×2 (08:59→20:51)
[2018-10-27] MEDS: Fluticasone/Salmeterol 250-50 MCG Inhalation Powder 14/Diskus INH SCH ×2 (09:05→20:54)
[2018-10-27] MEDS ORDERED: Digoxin 500 MCG/2 ML Amp IVPUSH ONE ×2 (10:40→12:40)
[2018-10-27] MEDS ORDERED: Metoprolol Tartrate 25 MG Tab PO ONE (20:48)
[2018-10-27] MEDS: Sodium Chloride 0.9% 10 ML Syringe FLUSH PRN (20:56)
[2018-10-27] MEDS ORDERED: Amiodarone/Dextrose,Iso-Osmotic 150 MG/100 ML Premix Bag IV ONE (22:11)
[2018-10-28] MEDS ORDERED: POTASSIUM GLUCONATE PO SCH ×2 (08:15)
[2018-10-28 08:29] LABS: ANION GAP 5.6 mmol/L (5-15); CHLORIDE,CL 108 mmol/L (98-115); SODIUM,NA 146 mmol/L (136-145)
[2018-10-28] MEDS ORDERED: Atropine/Diphenoxylate 0.025-2.5 MG Tab PO PRN (09:27)
[2018-10-28] MEDS ORDERED: POTASSIUM GLUCONATE 595 MG PO SCH (09:30)
[2018-10-28] MEDS ORDERED: Metoprolol Succinate 25 MG Tab.ER PO SCH (09:30)
[2018-10-28] MEDS: Fluticasone/Salmeterol 250-50 MCG Inhalation Powder 14/Diskus INH SCH ×2 (09:39→20:28)
[2018-10-28] MEDS ORDERED: EPINEPHrine 1:10,000 1 MG/10 ML Syringe IVPUSH PRN (09:47)
[2018-10-28] MEDS ORDERED: Lidocaine 2% 100 MG/5 ML Syringe IVPUSH PRN (09:47)
[2018-10-28] MEDS ORDERED: Atropine 0.1 MG/ML 10 ML Syringe IVPUSH PRN (09:47)
[2018-10-28] MEDS ORDERED: Nitroglycerin 0.4 MG Tab.SL SL PRN (09:47)
[2018-10-28] MEDS ORDERED: Albuterol/Ipratropium 3.0-0.5 MG/3 ML Neb Soln NEB PRN (09:49)
[2018-10-28] MEDS: Magnesium Oxide 500 MG Tab PO SCH ×3 (10:25→20:27)
[2018-10-28] MEDS: Cholecalciferol (Vitamin D3) 25 MCG Tab PO SCH (10:25)
[2018-10-28] MEDS: Furosemide 20 MG Tab PO SCH (10:25)
[2018-10-28] MEDS: atorvaSTATin 10 MG Tab PO SCH (10:25)
[2018-10-28] MEDS: Folic Acid 1 MG Tab PO SCH (10:25)
[2018-10-28] MEDS: Citalopram 20 MG Tab PO SCH (10:25)
[2018-10-28] MEDS: Digoxin 125 MCG Tab PO SCH (10:26)
[2018-10-28] MEDS: Diltiazem 120 MG Cap.CD PO SCH (10:26)
[2018-10-28] MEDS: Apixaban 5 MG Tab PO SCH ×2 (10:26→20:27)
[2018-10-28] MEDS: Aspirin 81 MG Tab.EC PO SCH (10:26)
[2018-10-28] MEDS: Metoprolol Tartrate 25 MG Tab PO SCH ×2 (10:26→20:27)
--- NOTE | 2018-10-28 10:27 | PN ---
10/28/2018 PATIENT NAME: TIM HENSON SUBJECTIVE: This is a 77-year-old female patient who had been seen in [facility] back on 10/18/[address] Ki Evangelista. At that time, the patient was at home and she is complaining of weakness and dizziness. Blood pressure at that time in the clinic was low at 72/40. She was admitted to the [facility]. At that time, she had some atrial fibrillation and tachycardia with a low blood pressure at that time. The patient was admitted. She was doing fine and she has been swung over to swing bed status. Yesterday, the patient was in a sinus tachycardia in the 130s. She was given 2 loading doses of digoxin IV. During the night, she went into an atrial fibrillation about the 120s. She was given an additional dose of metoprolol tartrate 25 mg p.o. I did consult with Cardiology last night. They say if she continues in the atrial fibrillation, may start an amiodarone drip. The patient's heart rate did come down. She was in the AFib in about the 80s and then she eventually converted to a sinus rhythm. Now today, the patient states that she is feeling fine. She denies any shortness of breath more than normal. No chest pain. She cannot really tell when her heart is going fast. Today now she is in a normal sinus rhythm in the 80s. No swelling to her lower extremities. The patient does have a few fine crackles throughout the lung barajas, but she has had IV fluids going to 65 mL an hour. OBJECTIVE: VITAL SIGNS: Today, temperature is 98.4, pulse is 88 and regular, blood pressure is 117/68, respiratory rate is 20, oxygen saturations are 96% on 2 L nasal cannula. GENERAL: This is an elderly white female, in no acute distress. She is on oxygen. LUNGS: Lung sounds are very diminished. She does have a few scattered fine crackles throughout her lung barajas. CARDIAC: Heart tones are distant, but regular rate and rhythm at this time. ABDOMEN: Soft, nontender, nondistended. Bowel sounds present x4. No pedal edema noted on exam. LABORATORY DATA: The patient's lab work that she had obtained today; CBC shows a white count slightly low at 3.1, hemoglobin low at 9.8, and platelet count 172. The patient's chemistry panel shows a sodium just slightly high at 146. The patient's total protein is slightly low at 5.3 and albumin is low at 1.74, otherwise is unremarkable. Kidney functions unremarkable IMPRESSION AND PLAN: 1. Weakness and dizziness secondary to sinus tachycardia and recent atrial fibrillation with rapid ventricular response. Plan: The patient did receive 2 loading doses of digoxin yesterday IV. She received 0.25 mg IV. Two hours later, she continued to be in sinus tachycardia, so she got a second dose of digoxin IV. Last night, she was still going fast and she had gone into atrial fibrillation, that was in the one-teens to 120s. She got an additional dose of metoprolol tartrate 25 mg orally last night, so she got a total of 37.5 mg last night. During the night, her rate was controlled and she did convert into a sinus rhythm. I did an EKG this morning, which shows a normal sinus rhythm at 88 beats per minute. I am going to stop the patient's IV fluids. She did have normal saline going at 65 mL an hour. She does have a few fine crackles to her lungs. We will continue with the Lasix 20 mg p.o. daily. We will continue with calcium channel michelet of Cardizem CD 120 mg daily along with beta michelet, metoprolol tartrate 12.5 mg twice a day. The patient also was on anticoagulation of aspirin 81 mg. We will continue the patient on anticoagulation therapy, also Eliquis 5 mg twice a day. Also Digoxin 0.125 mg daily. 2. History of hyperlipidemia. Plan: Continue the patient on Zocor 20 mg daily. 3. History of depression. Plan: Continue with Celexa 10 mg daily. 4. History of chronic obstructive pulmonary disease. Plan: Continue with oxygen 2 L nasal cannula as previous, along with her Advair, she takes twice a day. She may take some DuoNeb as needed. 5. History of alcoholism. Plan: Continue with folic acid 1 mg daily along with thiamine 100 mg daily. 6. Hypomagnesemia. Plan: Continue with magnesium tablets 500 mg 3 times a day. 7. History of hypokalemia. Plan: Continue with potassium gluconate 595 mg twice a day. /[id number]/MODL MTDD
[2018-10-28] MEDS: Thiamine 100 MG Tab PO SCH (10:32)
[2018-10-28] MEDS ORDERED: Acetaminophen 325 MG Tab PO PRN (10:58)
[2018-10-28] MEDS: Calcium Citrate/Vitamin D3 315 MG-250 Unit Tab PO SCH (19:40)
[2018-10-28] MEDS: Potassium Chloride 10 MEQ Tab.ER PO SCH (19:40)
[2018-10-29] MEDS ORDERED: Aspirin 81 MG Tab.EC PO SCH (08:00)
[2018-10-29] MEDS: atorvaSTATin 10 MG Tab PO SCH (08:32)
[2018-10-29] MEDS: Folic Acid 1 MG Tab PO SCH (08:32)
[2018-10-29] MEDS: Apixaban 5 MG Tab PO SCH ×2 (08:32→21:03)
[2018-10-29] MEDS: Cholecalciferol (Vitamin D3) 25 MCG Tab PO SCH (08:32)
[2018-10-29] MEDS: Calcium Citrate/Vitamin D3 315 MG-250 Unit Tab PO SCH ×2 (08:32→17:45)
[2018-10-29] MEDS: Furosemide 20 MG Tab PO SCH (08:32)
[2018-10-29] MEDS: Citalopram 20 MG Tab PO SCH (08:32)
[2018-10-29] MEDS: Magnesium Oxide 500 MG Tab PO SCH ×3 (08:33→21:02)
[2018-10-29] MEDS: Digoxin 125 MCG Tab PO SCH (08:33)
[2018-10-29] MEDS: Potassium Chloride 10 MEQ Tab.ER PO SCH ×2 (08:33→17:44)
[2018-10-29] MEDS: Aspirin 81 MG Tab.EC PO SCH (08:33)
[2018-10-29] MEDS: Metoprolol Tartrate 25 MG Tab PO SCH ×2 (08:34→21:03)
[2018-10-29] MEDS: Diltiazem 120 MG Cap.CD PO SCH (08:34)
[2018-10-29] MEDS: Thiamine 100 MG Tab PO SCH (08:34)
[2018-10-29] MEDS: Fluticasone/Salmeterol 250-50 MCG Inhalation Powder 14/Diskus INH SCH ×2 (08:41→21:02)
[2018-10-30] MEDS: Calcium Citrate/Vitamin D3 315 MG-250 Unit Tab PO SCH ×2 (08:47→18:09)
[2018-10-30] MEDS: Magnesium Oxide 500 MG Tab PO SCH ×3 (08:47→20:37)
[2018-10-30] MEDS: atorvaSTATin 10 MG Tab PO SCH (08:47)
[2018-10-30] MEDS: Aspirin 81 MG Tab.EC PO SCH (08:48)
[2018-10-30] MEDS: Citalopram 20 MG Tab PO SCH (08:49)
[2018-10-30] MEDS: Potassium Chloride 10 MEQ Tab.ER PO SCH ×2 (08:50→18:09)
[2018-10-30] MEDS: Metoprolol Tartrate 25 MG Tab PO SCH ×2 (08:50→20:40)
[2018-10-30] MEDS: Apixaban 5 MG Tab PO SCH ×2 (08:50→20:37)
[2018-10-30] MEDS: Folic Acid 1 MG Tab PO SCH (08:50)
[2018-10-30] MEDS: Furosemide 20 MG Tab PO SCH (08:51)
[2018-10-30] MEDS: Diltiazem 120 MG Cap.CD PO SCH (08:51)
[2018-10-30] MEDS: Cholecalciferol (Vitamin D3) 25 MCG Tab PO SCH (08:51)
[2018-10-30] MEDS: Digoxin 125 MCG Tab PO SCH (08:52)
[2018-10-30] MEDS: Thiamine 100 MG Tab PO SCH (08:52)
[2018-10-30] MEDS: Fluticasone/Salmeterol 250-50 MCG Inhalation Powder 14/Diskus INH SCH ×2 (09:05→20:37)
[2018-10-31] MEDS: Cholecalciferol (Vitamin D3) 25 MCG Tab PO SCH (08:52)
[2018-10-31] MEDS: Folic Acid 1 MG Tab PO SCH (08:53)
[2018-10-31] MEDS: Calcium Citrate/Vitamin D3 315 MG-250 Unit Tab PO SCH ×2 (08:53→18:26)
[2018-10-31] MEDS: Potassium Chloride 10 MEQ Tab.ER PO SCH ×2 (08:54→18:26)
[2018-10-31] MEDS: Magnesium Oxide 500 MG Tab PO SCH ×3 (08:54→21:20)
[2018-10-31] MEDS: atorvaSTATin 10 MG Tab PO SCH (08:54)
[2018-10-31] MEDS: Aspirin 81 MG Tab.EC PO SCH (08:55)
[2018-10-31] MEDS: Apixaban 5 MG Tab PO SCH ×2 (08:55→21:20)
[2018-10-31] MEDS: Thiamine 100 MG Tab PO SCH (08:56)
[2018-10-31] MEDS: Metoprolol Tartrate 25 MG Tab PO SCH ×2 (09:04→21:20)
[2018-10-31] MEDS: Diltiazem 120 MG Cap.CD PO SCH (09:05)
[2018-10-31] MEDS: Furosemide 20 MG Tab PO SCH (09:06)
[2018-10-31] MEDS: Citalopram 20 MG Tab PO SCH (09:06)
[2018-10-31] MEDS: Digoxin 125 MCG Tab PO SCH (09:06)
[2018-10-31] MEDS: Fluticasone/Salmeterol 250-50 MCG Inhalation Powder 14/Diskus INH SCH ×2 (09:12→21:20)
[2018-10-31] MEDS ORDERED: ALPRAZolam 0.25 MG Tab PO PRN (09:14)
[2018-11-01] MEDS: Potassium Chloride 10 MEQ Tab.ER PO SCH ×2 (08:52→18:25)
[2018-11-01] MEDS: Cholecalciferol (Vitamin D3) 25 MCG Tab PO SCH (08:52)
[2018-11-01] MEDS: atorvaSTATin 10 MG Tab PO SCH (08:53)
[2018-11-01] MEDS: Citalopram 20 MG Tab PO SCH (08:53)
[2018-11-01] MEDS: Digoxin 125 MCG Tab PO SCH (08:55)
[2018-11-01] MEDS: Metoprolol Tartrate 25 MG Tab PO SCH ×2 (08:55→20:51)
[2018-11-01] MEDS: Diltiazem 120 MG Cap.CD PO SCH (08:56)
[2018-11-01] MEDS: Folic Acid 1 MG Tab PO SCH (08:56)
[2018-11-01] MEDS: Aspirin 81 MG Tab.EC PO SCH (08:57)
[2018-11-01] MEDS: Apixaban 5 MG Tab PO SCH ×2 (08:57→20:50)
[2018-11-01] MEDS: Calcium Citrate/Vitamin D3 315 MG-250 Unit Tab PO SCH ×2 (08:58→18:25)
[2018-11-01] MEDS: Magnesium Oxide 500 MG Tab PO SCH ×3 (08:58→20:50)
[2018-11-01] MEDS: Furosemide 20 MG Tab PO SCH (08:59)
[2018-11-01] MEDS: Thiamine 100 MG Tab PO SCH (09:00)
[2018-11-01] MEDS: Fluticasone/Salmeterol 250-50 MCG Inhalation Powder 14/Diskus INH SCH ×2 (09:02→20:50)
[2018-11-01] MEDS: Loperamide 2 MG Cap PO SCH ×2 (13:17→18:25)
[2018-11-02] MEDS: Loperamide 2 MG Cap PO SCH ×5 (03:24→21:12)
[2018-11-02] MEDS: Furosemide 20 MG Tab PO SCH (09:19)
[2018-11-02] MEDS: atorvaSTATin 10 MG Tab PO SCH (09:19)
[2018-11-02] MEDS: Calcium Citrate/Vitamin D3 315 MG-250 Unit Tab PO SCH ×2 (09:19→17:49)
[2018-11-02] MEDS: Potassium Chloride 10 MEQ Tab.ER PO SCH ×2 (09:19→17:49)
[2018-11-02] MEDS: Aspirin 81 MG Tab.EC PO SCH (09:19)
[2018-11-02] MEDS: Fluticasone/Salmeterol 250-50 MCG Inhalation Powder 14/Diskus INH SCH ×2 (09:19→21:15)
[2018-11-02] MEDS: Cholecalciferol (Vitamin D3) 25 MCG Tab PO SCH (09:20)
[2018-11-02] MEDS: Apixaban 5 MG Tab PO SCH ×2 (09:20→21:12)
[2018-11-02] MEDS: Diltiazem 120 MG Cap.CD PO SCH (09:20)
[2018-11-02] MEDS: Digoxin 125 MCG Tab PO SCH (09:20)
[2018-11-02] MEDS: Folic Acid 1 MG Tab PO SCH (09:20)
[2018-11-02] MEDS: Citalopram 20 MG Tab PO SCH (09:21)
[2018-11-02] MEDS: Metoprolol Tartrate 25 MG Tab PO SCH ×2 (09:21→21:12)
[2018-11-02] MEDS: Thiamine 100 MG Tab PO SCH (09:22)
[2018-11-02] MEDS: Magnesium Oxide 500 MG Tab PO SCH ×3 (09:22→21:12)
[2018-11-03] MEDS: Loperamide 2 MG Cap PO SCH ×2 (03:54→08:35)
[2018-11-03] MEDS: Folic Acid 1 MG Tab PO SCH (08:34)
[2018-11-03] MEDS: Thiamine 100 MG Tab PO SCH (08:34)
[2018-11-03] MEDS: Potassium Chloride 10 MEQ Tab.ER PO SCH ×2 (08:34→18:12)
[2018-11-03] MEDS: Magnesium Oxide 500 MG Tab PO SCH ×3 (08:35→20:54)
[2018-11-03] MEDS: Apixaban 5 MG Tab PO SCH ×2 (08:35→20:53)
[2018-11-03] MEDS: Cholecalciferol (Vitamin D3) 25 MCG Tab PO SCH (08:35)
[2018-11-03] MEDS: Aspirin 81 MG Tab.EC PO SCH (08:35)
[2018-11-03] MEDS: Furosemide 20 MG Tab PO SCH (08:36)
[2018-11-03] MEDS: Calcium Citrate/Vitamin D3 315 MG-250 Unit Tab PO SCH ×2 (08:36→18:12)
[2018-11-03] MEDS: Diltiazem 120 MG Cap.CD PO SCH (08:36)
[2018-11-03] MEDS: Metoprolol Tartrate 25 MG Tab PO SCH ×2 (08:36→20:54)
[2018-11-03] MEDS: atorvaSTATin 10 MG Tab PO SCH (08:36)
[2018-11-03] MEDS: Digoxin 125 MCG Tab PO SCH (08:36)
[2018-11-03] MEDS: Citalopram 20 MG Tab PO SCH (08:37)
[2018-11-03] MEDS: Fluticasone/Salmeterol 250-50 MCG Inhalation Powder 14/Diskus INH SCH ×2 (08:45→20:53)
[2018-11-03] MEDS ORDERED: Loperamide 2 MG Cap PO SCH (21:00)
[2018-11-04] MEDS: Fluticasone/Salmeterol 250-50 MCG Inhalation Powder 14/Diskus INH SCH ×2 (08:35→20:00)
[2018-11-04] MEDS: Cholecalciferol (Vitamin D3) 25 MCG Tab PO SCH (08:40)
[2018-11-04] MEDS: Citalopram 20 MG Tab PO SCH (08:41)
[2018-11-04] MEDS: Magnesium Oxide 500 MG Tab PO SCH ×3 (08:41→20:00)
[2018-11-04] MEDS: Loperamide 2 MG Cap PO SCH ×3 (08:41→20:00)
[2018-11-04] MEDS: Calcium Citrate/Vitamin D3 315 MG-250 Unit Tab PO SCH ×2 (08:41→17:39)
[2018-11-04] MEDS: Potassium Chloride 10 MEQ Tab.ER PO SCH ×2 (08:41→17:39)
[2018-11-04] MEDS: Furosemide 20 MG Tab PO SCH (08:42)
[2018-11-04] MEDS: Apixaban 5 MG Tab PO SCH ×2 (08:42→20:00)
[2018-11-04] MEDS: atorvaSTATin 10 MG Tab PO SCH (08:42)
[2018-11-04] MEDS: Aspirin 81 MG Tab.EC PO SCH (08:42)
[2018-11-04] MEDS: Folic Acid 1 MG Tab PO SCH (08:42)
[2018-11-04] MEDS: Thiamine 100 MG Tab PO SCH (08:43)
[2018-11-04] MEDS: Diltiazem 120 MG Cap.CD PO SCH (08:46)
[2018-11-04] MEDS: Metoprolol Tartrate 25 MG Tab PO SCH ×2 (08:47→20:00)
[2018-11-04] MEDS: Digoxin 125 MCG Tab PO SCH ×2 (08:50→09:51)
[2018-11-05] MEDS: Loperamide 2 MG Cap PO SCH ×2 (03:36→09:01)
[2018-11-05] MEDS: Metoprolol Tartrate 25 MG Tab PO SCH (08:15)
[2018-11-05] MEDS: Digoxin 125 MCG Tab PO SCH (08:15)
[2018-11-05 08:16] VITALS: BP 100/58
[2018-11-05] MEDS: Diltiazem 120 MG Cap.CD PO SCH (08:16)
[2018-11-05] MEDS: atorvaSTATin 10 MG Tab PO SCH (08:59)
[2018-11-05] MEDS: Magnesium Oxide 500 MG Tab PO SCH (09:00)
[2018-11-05] MEDS: Citalopram 20 MG Tab PO SCH (09:00)
[2018-11-05] MEDS: Potassium Chloride 10 MEQ Tab.ER PO SCH (09:00)
[2018-11-05] MEDS: Apixaban 5 MG Tab PO SCH (09:00)
[2018-11-05] MEDS: Calcium Citrate/Vitamin D3 315 MG-250 Unit Tab PO SCH (09:00)
[2018-11-05] MEDS: Folic Acid 1 MG Tab PO SCH (09:01)
[2018-11-05] MEDS: Furosemide 20 MG Tab PO SCH (09:01)
[2018-11-05] MEDS: Aspirin 81 MG Tab.EC PO SCH (09:01)
[2018-11-05] MEDS: Thiamine 100 MG Tab PO SCH (09:01)
[2018-11-05] MEDS: Cholecalciferol (Vitamin D3) 25 MCG Tab PO SCH (09:02)
[2018-11-05] MEDS: Fluticasone/Salmeterol 250-50 MCG Inhalation Powder 14/Diskus INH SCH (09:09)
[2018-11-05 10:14] VITALS: PULSE 128
--- NOTE | 2018-11-05 11:07 | PCM.DCSUM1 ---
Discharge Summary - Hospital Course Free Text/Narrative:: Date of admission: 10/25/18 Date of discharge: 11/05/18 Admission diagnoses: Weakness/debilitation/self-care neglect Atrial fibrillation, paroxysmal Pneumonia, RML , CAP COPD Chronic hypoxic respiratory failure CAD/History of NSTEMI Hypertension, essential Chronic diarrhea Esophageal reflux Anemia, combined EUGENIO/ACD Hypomagnesemia HLD Osteoporosis Chronic facet joint syndrome/low back pain Depression Chronic alcoholism Discharge diagnoses: Weakness/debilitation/self-care neglect Atrial fibrillation, paroxysmal Pneumonia, RML , CAP COPD Chronic hypoxic respiratory failure CAD/History of NSTEMI Hypertension, essential Chronic diarrhea Esophageal reflux Anemia, combined EUGENIO/ACD Hypomagnesemia HLD Osteoporosis Chronic facet joint syndrome/low back pain Depression Chronic alcoholism Consultations: senior manager creative services Physical therapy Procedures: None Hospital course: 77yoF with a history of known COPD with chronic oxygen use, CAD, and alcoholism with long history of medical nonadherence who was initially admitted observation (10/18/18 to 10/20/18) and inpatient (10/20/18 to 10/25/18) following diagnosis of new onset atrial fibrillation with RVR and pneumonia. She responded well to initiation of rate control agents and was started on anticoagulation as well as antibiotic therapy for CAP. Physical therapy and social worker health services were consulted and due to ongoing debility and self care neglect , she was deemed to be a good candidate for swing bed program. She progressed well with physical therapy, but ongoing care with home health physical therapy was recommended but declined by the patient and her . In addition to medications as she was on following acute hospitalization, she was started on digoxin for difficult to control rate that occurred during her swing bed stay. She was doing well on this regimen, but didn't take her medication on the day prior to discharge and rate was mildly tachycardic, but without any other cardiopulmonary symptoms different from her baseline. Despite this, she adamantly desired discharge to home. Oxygen was at prior baseline and continued. Discharge and follow-up recommendations: - Discharge to home; recommend home health, but patient declines - New medications at discharge: Per list as below with new additions from prior to acute stay of apixaban, diltiazem, and digoxin - Follow-up in the clinic within 5-7 days with provider of choice - Discharge Data Discharge Date: 11/05/18 Discharge Disposition: Home, Self-Care 01 Condition: Fair - Patient Summary/Data Consults: Consultations 10/25/18 10:53 Consult to Physical Therapy [PT Evaluation and Treatment] [CONS] Routine - Patient Instructions Diet: Heart Healthy Diet Activity: As Tolerated Showering/Bathing: May Shower Other/Special Instructions: Highly encourage home health and physical thearpy. Return for any recurrent symptoms, chest pain, shortness of breath, or other concerns - Discharge Plan *PRESCRIPTION DRUG MONITORING PROGRAM REVIEWED*: Not Applicable *COPY OF PRESCRIPTION DRUG MONITORING REPORT IN PATIENT YAZAN: Not Applicable Prescriptions/Med Rec: Apixaban [Eliquis] 5 mg PO BID #60 tablet Digoxin 125 mcg PO DAILY #30 tablet Diltiazem [Cardizem CD] 120 mg PO DAILY #30 cap.cd Home Medications: Home Meds atorvaSTATin [Lipitor] 20 mg PO DAILY 01/04/15 [History] Calcium Carbonate/Vitamin D3 [Calcium 500-Vit D3 400 Tablet] 1 each PO BIDMEALS 06/15/15 [History] Citalopram [Celexa] 10 mg PO DAILY 06/15/15 [History] Fluticasone/Salmeterol [Advair Diskus 250-50] 1 puff INH BID 06/15/15 [History] Folic Acid 1 mg PO DAILY 06/15/15 [History] Magnesium Oxide [Magnesium] 500 mg PO TID 06/15/15 [History] Cholecalciferol (Vitamin D3) [Vitamin D3] 2,000 unit PO DAILY 08/11/16 [History] Thiamine [Vitamin B-1] 100 mg PO DAILY tablet 08/18/16 [Rx] Atropine/Diphenoxylate [Lomotil 0.025-2.5 MG] 1 tab PO TID PRN 11/13/17 [History ] Furosemide [Lasix] 20 mg PO DAILY 11/13/17 [History] Potassium Gluconate [Potassium] 595 mg PO BID 11/13/17 [History] Metoprolol Succinate [Toprol XL] 12.5 mg PO DAILY 10/18/18 [History] Apixaban [Eliquis] 5 mg PO BID #60 tablet 11/05/18 [Rx] Digoxin 125 mcg PO DAILY #30 tablet 11/05/18 [Rx] Diltiazem [Cardizem CD] 120 mg PO DAILY #30 cap.cd 11/05/18 [Rx] Referrals: Luigi Evangelista MD [Primary Care Provider] - 11/29/18 - Discharge Summary/Plan Comment DC Time >30 min.: Yes - General Info Subjective Update: Ms. Mckinney's only complaint today is wanting to get home. She states she feels well and has no concerns. Shortness of breath at baseline. Denies chest pain or palpitations despite mild tachycardia noted earlier today. Had a long discussion about recommendations from physical therapy and social worker health services regarding, at minimum, referral to home health, but patient adamantly declines. Agrees to follow-up in the clinic. - Patient Data Vitals - Most Recent: Last Vital Signs Temp 37.1 C 11/05/18 06:45 Pulse 128 H 11/05/18 09:09 Resp 20 11/05/18 06:45 BP 100/58 L 11/05/18 08:16 Pulse Ox 95 11/05/18 09:09 Weight - Most Recent: 59.024 kg I&O - Last 24 hours: Intake & Output 11/04/18 11/05/18 11/05/18 22:59 06:59 14:59 Intake Total 200 0 Balance 200 0 ZAIRA Results - Last 24 hrs: Microbiology 11/03/18 14:53 Clostridium difficile Toxin A & B - Final Stool / Feces NEGATIVE CDIFF TOXIN REFERENCE RANGE: NEGATIVE Med Orders - Current: Current Medications Acetaminophen (Tylenol) 650 mg PO Q4H PRN PRN Reason: Pain (mild 1-3) Last Admin: 10/29/18 06:28 Dose: 650 mg Albuterol/Ipratropium (Duoneb 3.0-0.5 Mg/3 Ml) 3 ml NEB Q6HRRT PRN PRN Reason: Shortness of Breath Alprazolam (Xanax) 0.25 mg PO Q8H PRN PRN Reason: Anxiety Apixaban (Eliquis) 5 mg PO BID [facility] Last Admin: 11/05/18 09:00 Dose: 5 mg Aspirin (Halfprin) 81 mg PO WITHBREAKFAST [facility] Last Admin: 11/05/18 09:01 Dose: 81 mg Atorvastatin Calcium (Lipitor) 20 mg PO DAILY [facility] Last Admin: 11/05/18 08:59 Dose: 20 mg Atropine Sulfate (Atropine 0.1 Mg/Ml) 0 mg IVPUSH ASDIRECTED PRN PRN Reason: Heart. Calcium Citrate (Calcium Citrate + D) 2 tab PO BIDMEALS [facility] Last Admin: 11/05/18 09:00 Dose: 2 tab Cholecalciferol (Vitamin D3) 50 mcg PO DAILY [facility] Last Admin: 11/05/18 09:02 Dose: 50 mcg Citalopram Hydrobromide (Celexa) 10 mg PO DAILY [facility] Last Admin: 11/05/18 09:00 Dose: 10 mg Digoxin (Lanoxin) 125 mcg PO DAILY [facility] Last Admin: 11/05/18 08:15 Dose: 125 mcg Diltiazem HCl (Cardizem Cd) 120 mg PO DAILY [facility] Last Admin: 11/05/18 08:16 Dose: 120 mg Diphenoxylate HCl/Atropine (Lomotil 0.025-2.5 Mg) 1 tab PO TID PRN PRN Reason: Diarrhea Last Admin: 10/29/18 14:27 Dose: 1 tab Epinephrine HCl (Epinephrine 1:10,000) 1 mg IVPUSH ASDIRECTED PRN PRN Reason: Heart. Folic Acid (Folic Acid) 1 mg PO DAILY [facility] Last Admin: 11/05/18 09:01 Dose: 1 mg Furosemide (Lasix) 20 mg PO DAILY [facility] Last Admin: 11/05/18 09:01 Dose: 20 mg Lidocaine HCl (Xylocaine 2%) 0 mg IVPUSH ASDIRECTED PRN PRN Reason: Heart. Loperamide HCl (Imodium) 2 mg PO Q6H [facility] Last Admin: 11/05/18 09:01 Dose: 2 mg Magnesium Oxide (Magnesium Oxide) 500 mg PO TID [facility] Last Admin: 11/05/18 09:00 Dose: 500 mg Metoprolol Tartrate (Lopressor) 12.5 mg PO BID [facility] Last Admin: 11/05/18 08:15 Dose: 12.5 mg Nitroglycerin (Nitrostat) 0.4 mg SL ASDIRECTED PRN PRN Reason: Heart. Potassium Chloride (Klor-Con 10) 10 meq PO BIDMEALS [facility] Last Admin: 11/05/18 09:00 Dose: 10 meq Ramelteon (Rozerem) 8 mg PO BEDTIME [facility] Last Admin: 11/04/18 20:00 Dose: 8 mg Fluticasone/Salmeterol (Advair Diskus 250-50) 1 puff INH BID [facility] Last Admin: 11/05/18 09:09 Dose: 1 inhalation Thiamine HCl (Vitamin B-1) 100 mg PO DAILY [facility] Last Admin: 11/05/18 09:01 Dose: 100 mg Discontinued Medications Acetaminophen (Tylenol) 650 mg PO Q4H PRN PRN Reason: Pain Amiodarone HCl/Dextrose (Nexterone In Dextrose 150 Mg/100 Ml) 150 mg IV .BOLUS ONE; Protocol Stop: 10/27/18 22:12 Last Admin: 10/27/18 23:30 Dose: Not Given Apixaban (Eliquis) 5 mg PO BID [facility] Last Admin: 10/27/18 20:53 Dose: 5 mg Aspirin (Halfprin) 81 mg PO WITHBREAKFAST [facility] Last Admin: 10/27/18 08:56 Dose: 81 mg Aspirin (Halfprin) 81 mg PO WITHBREAKFAST [facility] Atorvastatin Calcium (Lipitor) 20 mg PO DAILY [facility] Last Admin: 10/27/18 08:56 Dose: 20 mg Atropine Sulfate (Atropine 0.1 Mg/Ml) 0.5 - 1 mg IVPUSH ASDIRECTED PRN PRN Reason: Heart. Azithromycin (Zithromax) 250 mg PO DAILY [facility] Last Admin: 10/26/18 10:34 Dose: Not Given Calcium Citrate (Calcium Citrate + D) 2 tab PO BIDMEALS [facility] Last Admin: 10/27/18 18:05 Dose: 2 tab Cholecalciferol (Vitamin D3) 50 mcg PO DAILY [facility] Last Admin: 10/27/18 08:57 Dose: 50 mcg Citalopram Hydrobromide (Celexa) 10 mg PO DAILY [facility] Last Admin: 10/27/18 08:58 Dose: 10 mg Digoxin (Lanoxin) 250 mcg IVPUSH ONETIME ONE Stop: 10/27/18 10:41 Last Admin: 10/27/18 11:24 Dose: 250 mcg Digoxin (Lanoxin) 250 mcg IVPUSH ONETIME ONE Stop: 10/27/18 12:41 Last Admin: 10/27/18 12:49 Dose: 250 mcg Diltiazem HCl (Cardizem Cd) 120 mg PO DAILY [facility] Last Admin: 10/27/18 08:57 Dose: 120 mg Diphenoxylate HCl/Atropine (Lomotil 0.025-2.5 Mg) 1 tab PO TID PRN PRN Reason: Diarrhea Epinephrine HCl (Epinephrine 1:10,000) 1 mg IVPUSH ASDIRECTED PRN PRN Reason: Heart. Folic Acid (Folic Acid) 1 mg PO DAILY [facility] Last Admin: 10/27/18 08:56 Dose: 1 mg Sodium Chloride (Normal Saline) 1,000 mls @ 65 mls/hr IV ASDIRECTED [facility] Last Admin: 10/27/18 19:51 Dose: 65 mls/hr Amiodarone HCl/Dextrose (Nexterone In Dextrose 150 Mg/100 Ml) 150 mg in 100 mls @ 40 mls/hr IV ASDIRECTED [facility]; Protocol Stop: 10/30/18 04:30 Lidocaine HCl (Xylocaine 2%) 50 - 75 mg IVPUSH ASDIRECTED PRN PRN Reason: Heart. Loperamide HCl (Imodium) 4 mg PO Q6H [facility] Last Admin: 11/02/18 06:46 Dose: 4 mg Loperamide HCl (Imodium) 2 mg PO Q6H [facility] Last Admin: 11/03/18 08:35 Dose: 2 mg Loperamide HCl (Imodium) 2 mg PO BID [facility] Last Admin: 11/03/18 20:54 Dose: 2 mg Magnesium Oxide (Magnesium Oxide) 500 mg PO TID [facility] Last Admin: 10/27/18 20:53 Dose: 500 mg Metoprolol Succinate (Toprol Xl) 25 mg PO DAILY [facility] Metoprolol Succinate (Toprol Xl) 12.5 mg PO DAILY [facility] Last Admin: 10/28/18 10:09 Dose: Not Given Metoprolol Tartrate (Lopressor) 12.5 mg PO BID [facility] Last Admin: 10/27/18 20:51 Dose: Not Given Metoprolol Tartrate (Lopressor) 25 mg PO ONETIME ONE Stop: 10/26/18 17:58 Last Admin: 10/26/18 18:22 Dose: 25 mg Metoprolol Tartrate (Lopressor) 37.5 mg PO ONETIME ONE Stop: 10/27/18 20:49 Last Admin: 10/27/18 21:18 Dose: 37.5 mg Nitroglycerin (Nitrostat) 0.4 mg SL ASDIRECTED PRN PRN Reason: Heart. Non-Formulary Medication (Potassium Gluconate [Potassium]) 0 mg PO BID [facility] Non-Formulary Medication (Potassium Gluconate [Potassium]) 0 mg PO BID [facility] Non-Formulary Medication (Potassium Gluconate [Potassium]) 595 mg PO BID [facility] Last Admin: 10/28/18 11:15 Dose: Not Given Ramelteon (Rozerem) 8 mg PO BEDTIME [facility] Last Admin: 10/27/18 20:53 Dose: 8 mg Fluticasone/Salmeterol (Advair Diskus 250-50) 1 puff INH BID [facility] Last Admin: 10/27/18 20:54 Dose: 1 puff Sodium Chloride (Saline Flush) 10 ml FLUSH Q8HR PRN PRN Reason: keep vein open Last Admin: 10/27/18 20:56 Dose: 10 ml Sodium Chloride (Saline Flush) 10 ml FLUSH Q8HR PRN PRN Reason: keep vein open Thiamine HCl (Vitamin B-1) 100 mg PO DAILY [facility] Last Admin: 10/27/18 08:56 Dose: 100 mg - Exam Physical Findings Comments:: GENERAL: Chronically ill appearing elderly female appearing older than stated age sitting in bedside chair in no acute distress. HEENT: Normocephalic, atraumatic. Nasal cannula in place. Mucous membranes moist, posterior pharynx unremarkable. NECK: Supple, no masses. CV: Irregularly irregular, pulse 95 while auscultated, no murmurs, rubs, or gallops. 2+ radial pulses. PULMONARY: Normal effort, poor air movement in bases, no wheezes, rales, or rhonchi. ABDOMEN: Positive bowel sounds, soft, nontender, nondistended. EXTREMITIES: No edema, cyanosis, or clubbing. MUSCULOSKELETAL: Moves all extremities well. NEUROLOGICAL: No obvious deficits. DERMATOLOGIC: No rashes or suspicious lesions in exposed areas. PSYCHIATRIC: Alert, interactive, mildly cantankerous affect.
== END 2018-11-05 11:55 | disposition home or self-care (01) | DRG 310 ==
LOC: UNDOADMIN 11:00 → KA.MS 11:00 → UNDODISIN 10-27 22:14 → UNDOADMIN 10-27 22:15 → KA.MS 10-27 22:15
PROVIDERS: ADMIT Nurse Practitioner Family; ATTEND Nurse Practitioner Family
DX: I48.91 Unspecified atrial fibrillation (principal); H91.90 Unspecified hearing loss, unspecified ear; H54.7 Unspecified visual loss; E78.00 Pure hypercholesterolemia, unspecified; I10 Essential (primary) hypertension; J44.9 Chronic obstructive pulmonary disease, unspecified; K21.9 Gastro-esophageal reflux disease without esophagitis; G89.29 Other chronic pain; F32.9 Major depressive disorder, single episode, unspecified; I95.9 Hypotension, unspecified; M81.0 Age-related osteoporosis without current pathological fracture; I25.2 Old myocardial infarction; E83.42 Hypomagnesemia; E87.6 Hypokalemia; K52.9 Noninfective gastroenteritis and colitis, unspecified; D50.9 Iron deficiency anemia, unspecified; F10.20 Alcohol dependence, uncomplicated; Z88.5 Allergy status to narcotic agent; Z88.8 Allergy status to other drugs, medicaments and biological substances; Z79.51 Long term (current) use of inhaled steroids; Z79.82 Long term (current) use of aspirin; Z90.710 Acquired absence of both cervix and uterus; Z98.42 Cataract extraction status, left eye; Z98.41 Cataract extraction status, right eye; Z90.722 Acquired absence of ovaries, bilateral; Z79.899 Other long term (current) drug therapy; Z91.14 Patient's other noncompliance with medication regimen
CPT/HCPCS: 36415; 80053; 84484; 85025; 87324; 87449; 93005; 94640; 97110-GP; 97150-GP; 97162-GP; A9270-GY; J1160; J7030

== ENCOUNTER 2021-05-11 15:40 | Inpatient (IN) | payer MEDICARE, OTHER ==
[2021-05-11] MEDS ORDERED: Sodium Chloride 0.9% 1,000 ML IV ONE (15:52)
[2021-05-11] MEDS ORDERED: Sodium Chloride 0.9% 10 ML Syringe FLUSH PRN (15:52)
[2021-05-11 17:07] LABS: CHLORIDE,CL 124 mmol/L (98-107)
[2021-05-11] MEDS: D5 1/2 NS w/ 20 mEq/L KCl 1,000 ML IV SCH (17:13)
[2021-05-11 17:36] LABS: ANION GAP 8.80001 mmol/L (5-15); SODIUM,NA > 163 mmol/L (136-145)
[2021-05-12] MEDS: D5 1/2 NS w/ 20 mEq/L KCl 1,000 ML IV SCH (01:09)
[2021-05-12] MEDS ORDERED: Lidocaine 2% 100 MG/5 ML Syringe IVPUSH PRN (02:42)
[2021-05-12] MEDS ORDERED: Nitroglycerin 0.4 MG Tab.SL SL PRN (02:42)
[2021-05-12] MEDS ORDERED: Atropine 0.1 MG/ML 10 ML Syringe IVPUSH PRN (02:42)
[2021-05-12] MEDS ORDERED: EPINEPHrine 1:10,000 1 MG/10 ML Syringe IVPUSH PRN (02:42)
[2021-05-12] MEDS ORDERED: Saliva Substitute Oral Spray 120 ML Bottle MUCMEM PRN (06:11)
[2021-05-12 08:00] LABS: ANION GAP 10.1 mmol/L (5-15)
[2021-05-12] MEDS ORDERED: LORazepam 2 MG/ML SDV IVPUSH PRN (16:05)
[2021-05-12] MEDS ORDERED: fentaNYL 12 MCG/HR Transdermal Patch TRDERM SCH ×2 (16:15)
[2021-05-13] MEDS ORDERED: LORazepam 0.5 MG Tab PO PRN (10:33)
[2021-05-13 13:20] VITALS: BP 112/37; PULSE 62
== END 2021-05-13 13:08 | DRG 683 ==
LOC: KA.ED 15:40 → KA.MS 17:18 → UNDOADMIN 17:18
PROVIDERS: ADMIT Physician Assistant Medical; ATTEND Student in an Organized Health Care Education/Training Program
DX: E87.1 Hypo-osmolality and hyponatremia (principal); N17.9 Acute kidney failure, unspecified; D64.9 Anemia, unspecified; E87.0 Hyperosmolality and hypernatremia; Z68.1 Body mass index [BMI] 19.9 or less, adult; H54.7 Unspecified visual loss; H91.90 Unspecified hearing loss, unspecified ear; E78.00 Pure hypercholesterolemia, unspecified; J96.11 Chronic respiratory failure with hypoxia; E44.0 Moderate protein-calorie malnutrition; K59.09 Other constipation; E83.41 Hypermagnesemia; E87.6 Hypokalemia; F32.A Depression, unspecified; I10 Essential (primary) hypertension; Z88.6 Allergy status to analgesic agent; Z91.048 Other nonmedicinal substance allergy status; R00.1 Bradycardia, unspecified; I48.91 Unspecified atrial fibrillation; F10.20 Alcohol dependence, uncomplicated; Z66 Do not resuscitate; Z51.5 Encounter for palliative care; D50.9 Iron deficiency anemia, unspecified; D70.9 Neutropenia, unspecified; E83.42 Hypomagnesemia; K70.30 Alcoholic cirrhosis of liver without ascites; M81.0 Age-related osteoporosis without current pathological fracture; M47.819 Spondylosis without myelopathy or radiculopathy, site unspecified; M54.50 Low back pain, unspecified; R60.9 Edema, unspecified; K55.20 Angiodysplasia of colon without hemorrhage; I95.9 Hypotension, unspecified; R53.1 Weakness; R62.7 Adult failure to thrive; E78.5 Hyperlipidemia, unspecified; Z20.822 Contact with and (suspected) exposure to COVID-19; J44.9 Chronic obstructive pulmonary disease, unspecified; K21.9 Gastro-esophageal reflux disease without esophagitis; K52.9 Noninfective gastroenteritis and colitis, unspecified; Z87.19 Personal history of other diseases of the digestive system; Z87.2 Personal history of diseases of the skin and subcutaneous tissue; Z98.42 Cataract extraction status, left eye; Z98.41 Cataract extraction status, right eye; Z79.899 Other long term (current) drug therapy; Z87.81 Personal history of (healed) traumatic fracture; Z90.710 Acquired absence of both cervix and uterus; Z90.722 Acquired absence of ovaries, bilateral; Z79.01 Long term (current) use of anticoagulants
CPT/HCPCS: 36415; 70450; 71045; 80053; 83605; 83735; 84100; 84132; 84295; 84484; 85025; 86140; 87040; 93005; 93010; 96374; 99284; 99285-25; A9270-GY; J3480; J7030; U0002